=== PATIENT | female | born 1990 | race Caucasian/White ===

== ENCOUNTER 2020-01-28 16:02 | Emergency (ER) | payer OTHER, SELFPAY ==
[2020-01-28 19:17] VITALS: BP 132/83; PULSE 88; RESP 16; TEMP 36.9; O2SAT 100; BMI 43.5
[2020-01-28 20:07] VITALS: BP 132/86; PULSE 90; RESP 17; TEMP 36.8; O2SAT 98
--- NOTE | 2020-01-28 20:12 | ED_ITS ---
HPI - URI/Sore Throat General Chief Complaint: Skin/Abscess/Foreign Body Stated Complaint: ABSCESS Time Seen by Provider: 01/28/20 20:04 Source: patient Mode of arrival: ambulatory Limitations: no limitations History of Present Illness HPI Narrative: Sore throat R>L x several weeks. One temp 100.3 today. Went to urgent care and sent to the ED for further evaluation after COVID testing sent. 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 MD elicited complaint: sore throat Onset (ago): week(s) Consistency: constant Severity: moderate Able to tolerate fluids by mouth: Yes Exacerbating factors: nothing Relieving factors: nothing Associated symptoms: fever (one temp 100.3 today ) Treatments prior to arrival: none Related Data Home Medications Medication Instructions Recorded Confirmed acetaminophen 500 mg tablet 0 mg PO 01/28/20 cephalexin 250 mg capsule 250 mg PO QID 01/28/20 lorazepam 0.5 mg tablet 0.5 mg PO TID PRN 01/28/20 nitrofurantoin 1 cap PO BID 01/28/20 monohydrate/macrocrystals 100 mg capsule phenazopyridine 200 mg tablet 200 mg PO TID 01/28/20 Previous Rx's Medication Instructions Recorded azithromycin See Rx Instructions .ROUTE 01/28/20 .COMPLEX #6 tab clindamycin HCl 75 mg capsule 150 mg PO TID 10 Days #60 cap 01/28/20 ibuprofen 600 mg PO TID PRN #20 tab 01/28/20 prednisone 20 mg tablet 20 mg PO DAILY 9 Days #18 tab 01/28/20 Allergies Allergy/AdvReac Type Severity Reaction Status Date / Time amoxicillin Allergy Unknown rash Verified 10/02/19 00:00 No Known Allergies Allergy Unverified 12/11/19 17:46 [No Known Allergies*] Review of Systems Constitutional: Constitutional: Reports no additional constitutional complaints, Denies body ache(s), Denies chills, Reports fever(s) (one temp 100.3), Denies headache(s) and Denies weakness Eyes: Eyes: Reports no additional eye complaints and Denies change in vision ENT: Reports system reviewed and no additional complaints, except as documented, Denies otalgia, Denies headache(s), Denies nasal congestion, Denies nasal discharge, Denies neck pain and Reports sore throat Cardiovascular: Cardiovascular: Reports no additional cardiovascular complaints, Denies chest pain, Denies leg edema and Denies dyspnea Respiratory: Respiratory: Reports no additional respiratory complaints, Denies cough and Denies dyspnea Gastrointestinal: Gastrointestinal: Reports no additional gastrointestinal complaints, Denies abdominal pain, Denies diarrhea, Denies nausea and Denies vomiting Genitourinary: Genitourinary: Reports no additional female genitourinary complaints, Denies urinary incontinence, Denies urinary hesitancy and Denies urinary urgency Musculoskeletal: Musculoskeletal: Reports no additional musculoskeletal complaints, Denies back pain, Denies arthralgias, Denies joint swelling, Denies neck pain, Denies numbness and Denies tingling Integumentary/Breasts: Skin/Breast: Reports system reviewed and no additional complaints, except as docu and Denies rash Neurologic: Reports system reviewed and no additional complaints, except as documented, Denies Abnormal speech present, Denies confusion, Denies dizziness, Denies headache(s), Denies focal weakness, Denies numbness, Denies tingling and Denies weakness Psychiatric: Psychiatric: Denies confusion [facility] Past Medical History Attestation statement: The following information was validated with the patient. Source: nursing notes reviewed Social History Social History Alcohol intake: never Smoked in Last 30 Days: No Use of substances other than those prescribed or required for medical reasons: No Advance Directives: No Advance Directives Information Provided: No Physical Exam Vital Signs: Vital Signs: Vital Signs Temp Pulse Resp BP Pulse Ox 01/28/20 20:07 98.3 F 90 17 132/86 98 01/28/20 19:17 98.4 F 88 16 132/83 100 Body Mass Index 43.5 Const: General: No confusion Orientation/consciousness: No confusion Limitations: no limitations HENMT: Head: Yes normal to inspection Ears: hearing grossly normal bilaterally General nose exam: Normal external nose present Face and sinus: Yes normal facial exam Mouth: Normal oral and palatal mucosa present Throat: Yes uvula midline, No peritonsillar mass, No postnasal drainage, No uvula laterally displaced, No uvular edema, No cobblestoning and Yes other (bilateral tonsillar mild erythema, no swelling/[employer]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 ) Eyes: General: appearance normal, both eyes and all related structures Pupils: Equal, round and reactive pupils present Neck: Neck: Yes normal visual inspection Chest: Chest palpation & inspection: normal inspection of the chest Resp: Effort & Inspection: normal respiratory effort Auscultation: clear to auscultation bilaterally Cardio: Rate: regular rate Rhythm: regular rhythm Peripheral pulses: Peripheral pulses 2+ throughout GI: Inspection: Yes normal to inspection Palpation (GI): Soft to palpation and nontender Auscultation: normal bowel sounds Back/Spine/Pelvis: Thoracic/Lumbar Spine: thoracic and lumbar spine normal to inspection Skin: General skin exam: no rashes or lesions noted Neuro: General: No confusion Cranial nerves: Yes Equal, round and reactive pupils present Cognition (Neuro): normal cognition Speech: No Abnormal speech present Gait exam (Neuro): Normal gait present Motor exam (neuro): 5/5 motor strength present throughout Extrem: General: Yes normal to inspection Course Course Course Narrative: Sore throat x several weeks. Seen at urgent care and sent to the ED for r/o [employer] SUPERVISOR. Patient has no unilateral swelling. Her uvula is midline. She has mild bilateral tonsillar erythema. No exudate or swelling. Exam is not consistent with a peritonsillar abscess. Rapid strep was negative. Throat culture sent. Will treat with short course of antibiotics x 5 days. Reviewed worrisome signs/symptoms with patient and when to return to ED. Comfortable with discharge home. Discharge Plan Discharge Clinical Impression: Pharyngitis Qualifiers: Pharyngitis/tonsillitis etiology: unspecified etiology Qualified Code(s): J02.9 - Acute pharyngitis, unspecified Patient Disposition: Home, Self-Care Instructions: Pharyngitis (ED) Additional Instructions: Salt water gargles Cepacol lozenges Prescriptions: New azithromycin 500 mg tablet See Rx Instructions .ROUTE .COMPLEX Qty: 6 RF: 0 ibuprofen 600 mg tablet 600 mg PO TID PRN (Reason: fever or pain) Qty: 20 RF: 0 No Action nitrofurantoin monohyd/m-cryst 100 mg capsule 1 cap PO BID RF: 0 phenazopyridine 200 mg tablet 200 mg PO TID RF: 0 cephalexin 250 mg capsule 250 mg PO QID RF: 0 acetaminophen 500 mg tablet 0 mg PO RF: 0 lorazepam 0.5 mg tablet 0.5 mg PO TID PRN (Reason: anxiety) RF: 0 clindamycin HCl 75 mg capsule 150 mg PO TID 10 Days Qty: 60 RF: 0 prednisone 20 mg tablet 20 mg PO DAILY 9 Days Qty: 18 RF: 0 Referrals: Mariusz Albarado MD [Primary Care Provider] - 2 days (if no improvement ) Stand Alone Forms: Work/School Release Interventions: ED Discharge Assessment Last Done: 01/28/20 20:59 Discharge Date/Time: 01/28/20 21:00
== END 2020-01-28 21:00 | disposition home or self-care (01) ==
PROVIDERS: Emergency Provider Internal Medicine; PCP Internal Medicine
DX: J02.9 Acute pharyngitis, unspecified (principal); R50.9 Fever, unspecified; Z79.899 Other long term (current) drug therapy; Z20.828 Contact with and (suspected) exposure to other viral communicable diseases
CPT/HCPCS: 87071; 87880; 99283; 99284

== ENCOUNTER 2020-01-28 17:15 | Outpatient (REF) | payer OTHER, SELFPAY | END 2020-01-28 17:16 | disposition home or self-care (01) | LOC: HO.LAB 17:15 | PROVIDERS: Visit Provider Nurse Practitioner Family | DX: Z20.828 Contact with and (suspected) exposure to other viral communicable diseases (principal) | CPT/HCPCS: 87071; 87880; 99283; 99284; U0003 ==

== ENCOUNTER 2020-08-16 19:37 | Emergency (ER) | payer OTHER, SELFPAY ==
--- NOTE | ~2020-08-16 | XR_ITS ---
EXAMINATION: XR WRIST, LEFT CLINICAL INFORMATION: Fall with painful left wrist COMPARISON: None TECHNIQUE: PA, lateral, and oblique views of the left wrist. FINDINGS: The bones and soft tissues are normal. Incidental note made of a small cyst in the capitellum. No fracture. Alignment is anatomic with normal joint spaces. No erosions or abnormal soft tissue calcifications. XR/XR wrist LT 2V IMPRESSION: No evidence of a traumatic left wrist injury
[2020-08-16 19:52] VITALS: BP 136/83; PULSE 84; RESP 18; TEMP 37.7; O2SAT 97; BMI 40.3
--- NOTE | 2020-08-16 20:15 | PC.NURSE ---
ICE PACK APPLIED TO LEFT WRIST. NEUROVASC INTACT.
--- NOTE | 2020-08-16 20:48 | ED_ITS ---
HPI - Extremity Injury (Upper) General Chief Complaint: Extremity Injury, Lower Stated Complaint: wrist pain Source: patient Mode of arrival: ambulatory Limitations: no limitations History of Present Illness HPI narrative: 30-year-old female presents with left wrist pain after tripping over her child. She landed on outstretched arm. She does not describe any other symptoms, did not hit her head or lose consciousness. MD complaint: injury to: left and forearm Onset (ago): hour(s) (Within the hour of arrival) Other injuries: none Handedness: right Place: home Severity: moderate Severity scale (1-10): 5 Relieving factors: cold therapy and immobilization Exacerbating factors: movement of extremity Context: fall Associated symptoms: denies other symptoms Treatments prior to arrival: cold therapy Related Data Home Medications Medication Instructions Recorded Confirmed acetaminophen 500 mg tablet 0 mg PO 01/28/20 cephalexin 250 mg capsule 250 mg PO QID 01/28/20 lorazepam 0.5 mg tablet 0.5 mg PO TID PRN 01/28/20 nitrofurantoin 1 cap PO BID 01/28/20 monohydrate/macrocrystals 100 mg capsule phenazopyridine 200 mg tablet 200 mg PO TID 01/28/20 Previous Rx's Medication Instructions Recorded azithromycin See Rx Instructions .ROUTE 01/28/20 .COMPLEX #6 tab ibuprofen 600 mg PO TID PRN #20 tab 01/28/20 cyclobenzaprine 10 mg PO TID PRN #7 tab 08/16/20 Allergies Allergy/AdvReac Type Severity Reaction Status Date / Time amoxicillin Allergy Unknown rash Verified 10/02/19 00:00 No Known Allergies Allergy Unverified 12/11/19 17:46 [No Known Allergies*] Review of Systems Review of Systems: Constitutional: No Fever, No Chills ENT/Mouth: No Ear Pain, No Hoarseness, No sore throat Eyes: No Eye Pain, No Swelling, No Redness, No Foreign Body Cardiovascular: No Chest Pain, No SOB Respiratory: No Cough, No Dyspnea Gastrointestinal: No Nausea, No Vomiting, No Diarrhea, No abdominal Pain Genitourinary: No Dysuria, No Hematuria Musculoskeletal: positive left forearm pain, No Myalgias, No Joint Swelling Skin: No Skin lacerations, No rash Neuro: No Weakness, No Numbness, No Paresthesias, No Loss of Consciousness, No Dizziness, No Headache Psych: No Anxiety/Panic, No Depression Heme/Lymph: no easy bruising, no Lymphadenopathy Endocrine: No Polyuria, No Polydipsia Yes all other systems are reviewed and are negative [facility] Past Medical History Attestation statement: The following information was validated with the patient. Source: old records reviewed Social History Social History Alcohol intake: never Advance Directives: No Patient : No Physical Exam Vital Signs: Vital Signs: Last Vital Signs Temp 99.8 F 08/16/20 19:52 Pulse 84 08/16/20 19:52 Resp 18 08/16/20 19:52 BP 136/83 08/16/20 19:52 Pulse Ox 97 08/16/20 19:52 Body Mass Index 40.3 Appearance: Alert. Oriented X3. No acute distress. Eyes: Pupils equal, round and reactive to light. ENT: Pharynx normal. Neck: Normal inspection. Neck supple. CVS: Normal heart rate and rhythm. Pulses normal. Respiratory: No respiratory distress. Breath sounds normal. Abdomen: Soft and nontender. Skin: Skin warm and dry. Normal skin color. Normal skin turgor. Extremities: Tenderness to palpation to the left radial process, has full range of motion to both upper extremities, strength 5/5 to all digits, no indication of tendon injury. No visible abnormality or deformity, no swelling or ecchymosis noted. Upper extremity Pulses are equal and with brisk capillary refill. Neuro: No motor deficit. No sensory deficit. Course Course Course Narrative: 30-year-old female presents with left wrist pain after tripping over her child and landing on outstretched arm. Will order x-rays. X-rays negative for acute findings. Patient does have some tenderness to the left radial process, will treat for grade 1 sprain. Will give velcro wrist splint and have patient follow RICE treatment. Will suggest Motrin and Tylenol for pain management. Patient verbalizes understanding of and agrees plan of care discharge home. MDM - Extremity Injury (Upper) Differential Diagnosis Differential diagnosis: Likely sprain and strain of wrist Medical Records Attestation: I reviewed the patient's medical records. Lab Data Attestation: I reviewed the patient's lab results. Imaging Data Left wrist x-ray: Attestation: I personally reviewed and interpreted this imaging study as follows: Radiologist's impression: EXAMINATION: XR WRIST, LEFT CLINICAL INFORMATION: Fall with painful left wrist COMPARISON: None TECHNIQUE: PA, lateral, and oblique views of the left wrist. FINDINGS: The bones and soft tissues are normal. Incidental note made of a small cyst in the capitellum. No fracture. Alignment is anatomic with normal joint spaces. No erosions or abnormal soft tissue calcifications. XR/XR wrist LT 2V IMPRESSION: No evidence of a traumatic left wrist injury Discharge Plan Discharge Clinical Impression: Left wrist sprain Patient Disposition: Home, Self-Care Instructions: Wrist Sprain (ED) Additional Instructions: You were evaluated for injuries sustained from a fall on outstretched arm. Your x-rays for the left wrist and forearm are negative for fracture. Your symptoms are consistent with a grade 1 mild sprain. Please use a Velcro wrist splint as needed for pain management. He has Tylenol and Motrin to help with pain. Use ice to help decrease swelling. Thank you for choosing this emergency department for evaluation. Please follow-up with primary care physician as needed. Return to the emergency department for any new, concerning, or worsening symptoms. Prescriptions: New cyclobenzaprine 10 mg tablet 10 mg PO TID PRN (Reason: muscle spasm) Qty: 7 RF: 0 No Action azithromycin 500 mg tablet See Rx Instructions .ROUTE .COMPLEX Qty: 6 RF: 0 ibuprofen 600 mg tablet 600 mg PO TID PRN (Reason: fever or pain) Qty: 20 RF: 0 nitrofurantoin monohyd/m-cryst 100 mg capsule 1 cap PO BID RF: 0 phenazopyridine 200 mg tablet 200 mg PO TID RF: 0 cephalexin 250 mg capsule 250 mg PO QID RF: 0 acetaminophen 500 mg tablet 0 mg PO RF: 0 lorazepam 0.5 mg tablet 0.5 mg PO TID PRN (Reason: anxiety) RF: 0 Interventions: ED Discharge Assessment Last Done: 08/16/20 21:49 Discharge Date/Time: 08/16/20 21:51
== END 2020-08-16 21:51 | disposition home or self-care (01) ==
PROVIDERS: Emergency Provider Emergency Medicine; PCP Internal Medicine
DX: S63.502A Unspecified sprain of left wrist, initial encounter (principal); W01.0XXA Fall on same level from slipping, tripping and stumbling without subsequent striking against object, initial encounter; Y93.9 Activity, unspecified; Y92.019 Unspecified place in single-family (private) house as the place of occurrence of the external cause; Y99.9 Unspecified external cause status; R93.6 Abnormal findings on diagnostic imaging of limbs; M67.432 Ganglion, left wrist
CPT/HCPCS: 73100; 99283; 99284

== ENCOUNTER 2020-11-01 14:37 | Emergency (ER) | payer OTHER, SELFPAY ==
--- NOTE | ~2020-11-01 | US_ITS ---
EXAMINATION: US PELVIS CLINICAL INFORMATION: Right pelvic pain with question of torsion COMPARISON: CT scan abdomen pelvis performed earlier in the day TECHNIQUE: Ultrasound of the pelvis is performed using both transabdominal and transvaginal transducers along with Doppler. Transvaginal imaging is performed due to inadequate visualization transabdominally. FINDINGS: Uterus: The uterus is anteverted and measures 10.1 x 4.3 x 5.8 cm. The double wall endometrial thickness is 10 mm. The uterus is smooth in contour and has normal myometrial echogenicity. No visible fibroid. Adnexa: Both ovaries are visualized. There is normal color flow to the adnexa. There is no evidence to suggest ovarian torsion. There is no pelvic ascites or fluid collection. Right ovary measures 3.0 x 1.9 x 1.7 cm. 5.1 Left ovary measures 3.3 x 2.1 x 2.1 cm. 7.6 US/US pelvic complete IMPRESSION: Normal-appearing uterus and ovaries with no evidence to suggest ovarian torsion
--- NOTE | ~2020-11-01 | CT_ITS ---
EXAMINATION: CT ABDOMEN AND PELVIS WITH CONTRAST CLINICAL INFORMATION: Right lower quadrant abdominal pain COMPARISON: None TECHNIQUE: Multidetector volumetric images were obtained from the superior aspect of the liver through the pubic symphysis following administration 85 mL of Omnipaque 350 intravenous contrast. Sagittal and coronal reformatted images were obtained on the technologist's workstation. Oral contrast: No This CT examination was performed using dose optimization techniques as appropriate, variously including the following: *Automated exposure control *Adjustment of mA and/or kV according to patient size (this includes techniques or standardized protocols for targeted exams where dose is matched to indication/reason for exam; i.e. extremities or head) *Use of iterative reconstruction technique DLP: 1040 mGy-cm FINDINGS: LUNG BASES: The visualized lung bases are unremarkable. LIVER, GALLBLADDER, AND BILIARY TREE: The liver is normal in size, shape, and attenuation. No focal hepatic lesion or biliary ductal dilatation is present. The gallbladder is unremarkable with no evidence of radiopaque gallstones, gallbladder wall thickening, or obvious pericholecystic inflammatory changes. PANCREAS: Unremarkable. SPLEEN: Unremarkable. ADRENAL GLANDS: Unremarkable. KIDNEYS AND URETERS: The kidneys are normal in size, shape, and attenuation. No hydronephrosis, hydroureter, or calculi seen. No perinephric stranding. BLADDER: Unremarkable. GASTROINTESTINAL TRACT: The small and large bowel are unremarkable. The appendix is unremarkable. ABDOMINAL WALL: No significant hernia is appreciated. LYMPH NODES: Normal. VASCULAR: Unremarkable. PELVIC VISCERA: Unremarkable. OSSEOUS STRUCTURES: Unremarkable. CT/CT abdomen pelvis w con IMPRESSION: No acute abnormality CT scan abdomen pelvis.
[2020-11-01 15:25] VITALS: BP 130/80; PULSE 81; RESP 18; TEMP 36.5; O2SAT 99; BMI 44.6
--- NOTE | 2020-11-01 15:27 | ED.GENADULT ---
HPI - General Adult General Chief complaint: General Medical Stated complaint: rt hip pain/ pelvic pain Time Seen by Provider: 11/01/20 15:26 Related Data Home Medications Medication Instructions Recorded Confirmed acetaminophen 500 mg tablet 0 mg PO 01/28/20 cephalexin 250 mg capsule 250 mg PO QID 01/28/20 lorazepam 0.5 mg tablet 0.5 mg PO TID PRN 01/28/20 nitrofurantoin 1 cap PO BID 01/28/20 monohydrate/macrocrystals 100 mg capsule phenazopyridine 200 mg tablet 200 mg PO TID 01/28/20 Previous Rx's Medication Instructions Recorded ibuprofen 600 mg tablet 600 mg PO TID PRN #20 tab 01/28/20 cyclobenzaprine 10 mg tablet 10 mg PO TID PRN #7 tab 08/16/20 azithromycin 500 mg tablet See Rx Instructions .ROUTE 09/28/20 .COMPLEX #6 tab [id number] 3.5 4 drp OTIC (EAR) RIGHT QID 10 Days 09/28/20 mg/mL-10,000 unit/mL-1 % ear #10 ml solution Allergies Allergy/AdvReac Type Severity Reaction Status Date / Time amoxicillin Allergy Intermediate rash Verified 11/01/20 15:25 [facility] Past Medical History Medical History No pertinent past medical history Social History Social History Alcohol intake: never Patient Tobacco Use Status: Never used Tobacco Use of substances other than those prescribed or required for medical reasons: No Advance Directives: No Advance Directives Information Provided: No Patient : No Physical Exam Vital Signs: Vital Signs: Last Vital Signs Temp 98.7 F 11/01/20 21:08 Pulse 68 11/01/20 23:39 Resp 18 11/01/20 23:39 BP 117/65 11/01/20 23:39 Pulse Ox 98 11/01/20 23:39 Body Mass Index 44.6 Course Course Course Narrative: Patient presents to the ED for right pelvic pain for the past 4 days. Patient denies any trauma. Labs and UA ordered. Rapid medical screening done. Vital signs stable. Medical Decision Making Lab Data Result diagrams: 11/01/20 19:01 11/01/20 19:01 Labs: Lab Results 11/01/20 11/01/20 11/01/20 Range/Units 19:01 19:01 19:06 WBC 8.9 (4.8-10.8) X10*3/uL RBC 4.81 (4.20-5.50) X10*6/uL Hgb 13.9 (12.0-16.0) g/dl Hct 41.9 (37-47) % MCV 87.1 (80-98) fL MCH 28.9 (27.0-33.0) pg MCHC 33.2 (31.0-35.0) g/dl RDW 13.2 (11.0-16.0) % Plt Count 268 (160-400) X10*3/uL MPV 10.3 (9.4-12.3) fL Immature Gran % (Auto) 0.1 (0.0-0.4) % Neut % (Auto) 74.1 H (45-73) % Lymph % (Auto) 21.0 (20-40) % [place] % (Auto) 4.3 (2-11) % Eos % (Auto) 0.3 (0-4) % Baso % (Auto) 0.2 (0-2) % Lymph # (Auto) 1.9 (1.2-4.9) X10*3/uL [place] # (Auto) 0.4 (0.1-1.2) X10*3/uL Eos # (Auto) 0.0 (0.0-0.4) X10*3/uL Baso # (Auto) 0.0 (0.0-0.2) X10*3/uL Abs Immat Gran (auto) 0.01 (0.00-0.03) X10*3/uL Absolute Neuts (auto) 6.6 (2.0-8.3) X10*3/uL Absolute Nucleated RBC 0.000 (0.0-0.012) X10*3/uL Nucleated RBC % (auto) 0.0 (0.0-0.2) /100WBC PT (9.9-13.0) SEC INR (0.9-1.1) APTT (24.1-38.0) SEC Sodium 140 (135-145) mmol/L Potassium 4.5 (3.3-5.1) mmol/L Chloride 106 (96-108) mmol/L Carbon Dioxide 26 (22-29) mmol/L Anion Gap 13 (12-20) BUN 17 H (9-16) mg/dL Creatinine 0.85 (0.5-1.4) mg/dL Estim Creat Clear Calc 124.4 Estimated GFR > 60 Random Glucose 92 (60-115) mg/dL Calcium 9.3 (8.4-10.2) mg/dL Total Bilirubin 0.4 (0.0-1.0) mg/dL AST 19 (5-31) U/L ALT 23 (0-31) U/L Alkaline Phosphatase 74 (39-117) U/L Total Protein 8.1 H (6.5-8.0) g/dL Albumin 4.6 (3.5-5.0) g/dL Urine Color YELLOW Urine Appearance CLEAR Urine pH 6.0 (5.0-8.0) Ur Specific Sabine 1.025 (1.005-1.025) Urine Protein NEG (NEG-TRACE) MG/DL Urine Glucose (UA) NEG (NEG) MG/DL Urine Ketones NEG (NEG) MG/DL Urine Blood NEG (NEG) Urine Nitrite NEG (NEG) Ur Leukocyte Esterase NEG (NEG) Urine Test (NEGATIVE) 11/01/20 11/01/20 Range/Units 19:06 23:08 WBC (4.8-10.8) X10*3/uL RBC (4.20-5.50) X10*6/uL Hgb (12.0-16.0) g/dl Hct (37-47) % MCV (80-98) fL MCH (27.0-33.0) pg MCHC (31.0-35.0) g/dl RDW (11.0-16.0) % Plt Count (160-400) X10*3/uL MPV (9.4-12.3) fL Immature Gran % (Auto) (0.0-0.4) % Neut % (Auto) (45-73) % Lymph % (Auto) (20-40) % Jess[place] % (Auto) (2-11) % Eos % (Auto) (0-4) % Baso % (Auto) (0-2) % Lymph # (Auto) (1.2-4.9) X10*3/uL [place] # (Auto) (0.1-1.2) X10*3/uL Eos # (Auto) (0.0-0.4) X10*3/uL Baso # (Auto) (0.0-0.2) X10*3/uL Abs Immat Gran (auto) (0.00-0.03) X10*3/uL Absolute Neuts (auto) (2.0-8.3) X10*3/uL Absolute Nucleated RBC (0.0-0.012) X10*3/uL Nucleated RBC % (auto) (0.0-0.2) /100WBC PT 12.1 (9.9-13.0) SEC INR 1.1 (0.9-1.1) APTT 35.8 (24.1-38.0) SEC Sodium (135-145) mmol/L Potassium (3.3-5.1) mmol/L Chloride (96-108) mmol/L Carbon Dioxide (22-29) mmol/L Anion Gap (12-20) BUN (9-16) mg/dL Creatinine (0.5-1.4) mg/dL Estim Creat Clear Calc Estimated GFR Random Glucose (60-115) mg/dL Calcium (8.4-10.2) mg/dL Total Bilirubin (0.0-1.0) mg/dL AST (5-31) U/L ALT (0-31) U/L Alkaline Phosphatase (39-117) U/L Total Protein (6.5-8.0) g/dL Albumin (3.5-5.0) g/dL Urine Color Urine Appearance Urine pH (5.0-8.0) Ur Specific Sabine (1.005-1.025) Urine Protein (NEG-TRACE) MG/DL Urine Glucose (UA) (NEG) MG/DL Urine Ketones (NEG) MG/DL Urine Blood (NEG) Urine Nitrite (NEG) Ur Leukocyte Esterase (NEG) Urine Test NEGATIVE (NEGATIVE) Discharge Plan Discharge Clinical Impression: Abdominal pain Patient Disposition: Home, Self-Care Instructions: Abdominal Pain (ED) Additional Instructions: Your lab work, urine sample, CT scan and abdominal ultrasound are all unremarkable It is still important to follow-up with your doctor for additional testing as needed Prescriptions: No Action cyclobenzaprine 10 mg tablet 10 mg PO TID PRN (Reason: muscle spasm) Qty: 7 RF: 0 ibuprofen 600 mg tablet 600 mg PO TID PRN (Reason: fever or pain) Qty: 20 RF: 0 nitrofurantoin monohyd/m-cryst 100 mg capsule 1 cap PO BID RF: 0 phenazopyridine 200 mg tablet 200 mg PO TID RF: 0 cephalexin 250 mg capsule 250 mg PO QID RF: 0 acetaminophen 500 mg tablet 0 mg PO RF: 0 lorazepam 0.5 mg tablet 0.5 mg PO TID PRN (Reason: anxiety) RF: 0 azithromycin 500 mg tablet See Rx Instructions .ROUTE .COMPLEX Qty: 6 RF: 0 [id number]-[id number]-AH 3.5-10,000-1 mg/mL-unit/mL-% solution 4 drp otic (ear) right QID 10 Days Qty: 10 RF: 0 Referrals: Mariusz Albarado MD [Primary Care Provider] - 2 days Interventions: ED Discharge Assessment Last Done: 11/01/20 23:46 Discharge Date/Time: 11/01/20 23:47
[2020-11-01 19:06] LABS: MANUAL DIFF FLAG NO
[2020-11-01 19:12] LABS: Basophils Percent Auto 0.2 % (0-2); Eosinophils Percent Auto 0.3 % (0-4); Hematocrit 41.9 % (37-47); Hemoglobin 13.9 g/dl (12.0-16.0); Imm Gran Abs Auto 0.01 X10*3/uL (0.00-0.03); Imm Gran Pct Auto 0.1 % (0.0-0.4); Lymphocytes Absolute Auto 1.9 X10*3/uL (1.2-4.9); Mean Corpuscular HGB Conc 33.2 g/dl (31.0-35.0); Mean Corpuscular Hemoglobin 28.9 pg (27.0-33.0); Mean Corpuscular Volume 87.1 fL (80-98); Mean Platelet Volume 10.3 fL (9.4-12.3); Monocytes Absolute Auto 0.4 X10*3/uL (0.1-1.2); Monocytes Percent Auto 4.3 % (2-11); Neutrophils Absolute Auto 6.6 X10*3/uL (2.0-8.3); Neutrophils Percent Auto 74.1 % (45-73); Platelet Count 268 X10*3/uL (160-400); Red Blood Count 4.81 X10*6/uL (4.20-5.50); Red Cell Distribution Width 13.2 % (11.0-16.0); White Blood Count 8.9 X10*3/uL (4.8-10.8)
[2020-11-01 19:28] LABS: Glucose Urine UA NEG (NEG); Leukocyte Esterase Urine NEG (NEG); Nitrite Urine NEG (NEG); Specific Gravity - Urine 1.025 (1.005-1.025); Urine Blood NEG (NEG); Urine Ketones NEG (NEG); Urine Protein NEG (NEG-TRACE)
[2020-11-01 19:30] LABS: Appearance Urine CLEAR; Color Urine YELLOW; UPreg QC Valid YES; Urine Pregnancy NEGATIVE (NEGATIVE)
[2020-11-01 19:34] LABS: Alanine Aminotransferase 23 U/L (0-31); Albumin Level 4.6 g/dL (3.5-5.0); Alkaline Phosphatase 74 U/L (39-117); Anion Gap 13 (12-20); Aspartate Amino Transferase 19 U/L (5-31); Bilirubin Total 0.4 mg/dL (0.0-1.0); Blood Urea Nitrogen 17 mg/dL (9-16); Calcium 9.3 mg/dL (8.4-10.2); Carbon Dioxide 26 mmol/L (22-29); Chloride 106 mmol/L (96-108); Creatinine Clr Calc Pharmacy 124.4; Estimated Glomerular Filt Rate > 60; Glucose Random 92 mg/dL (60-115); Potassium 4.5 mmol/L (3.3-5.1); Sodium 140 mmol/L (135-145); Total Protein 8.1 g/dL (6.5-8.0)
[2020-11-01 21:08] VITALS: BP 109/65; PULSE 73; RESP 18; TEMP 37.1; O2SAT 99
--- NOTE | 2020-11-01 21:11 | ED_ITS ---
HPI - General Adult General Chief complaint: General Medical Stated complaint: rt hip pain/ pelvic pain Time Seen by Provider: 11/01/20 15:26 Source: patient Mode of arrival: ambulatory Limitations: no limitations History of Present Illness HPI narrative: 30-year-old female previously healthy here with complaints of right-sided abdominal pain for the last 4 days with associated nausea and diarrhea. Patient tells me that she has had 3-4 episodes of diarrhea a day. Nonbloody. No vomiting. No fevers or chills. No urinary symptoms. No vaginal discharge. No new sexual partners. Last menstrual cycle 2 weeks ago. One male partner. Uses condoms. Related Data Home Medications Medication Instructions Recorded Confirmed acetaminophen 500 mg tablet 0 mg PO 01/28/20 cephalexin 250 mg capsule 250 mg PO QID 01/28/20 lorazepam 0.5 mg tablet 0.5 mg PO TID PRN 01/28/20 nitrofurantoin 1 cap PO BID 01/28/20 monohydrate/macrocrystals 100 mg capsule phenazopyridine 200 mg tablet 200 mg PO TID 01/28/20 Previous Rx's Medication Instructions Recorded ibuprofen 600 mg tablet 600 mg PO TID PRN #20 tab 01/28/20 cyclobenzaprine 10 mg tablet 10 mg PO TID PRN #7 tab 08/16/20 azithromycin 500 mg tablet See Rx Instructions .ROUTE 09/28/20 .COMPLEX #6 tab zzybwoav-wkbkwxocx-imaeieusl 3.5 4 drp OTIC (EAR) RIGHT QID 10 Days 09/28/20 mg/mL-10,000 unit/mL-1 % ear #10 ml solution Allergies Allergy/AdvReac Type Severity Reaction Status Date / Time amoxicillin Allergy Intermediate rash Verified 11/01/20 15:25 Review of Systems Review of Systems: Yes all other systems are reviewed and are negative Constitutional: Constitutional: Reports no additional constitutional complaints, Denies body ache(s), Denies chills, Denies fever(s), Denies headache(s) and Denies weakness Eyes: Eyes: Reports no additional eye complaints and Denies change in vision ENT: Reports system reviewed and no additional complaints, except as documented, Denies dizziness, Denies headache(s), Denies nasal congestion, Denies nasal discharge and Denies neck pain Cardiovascular: Cardiovascular: Reports no additional cardiovascular complaints, Denies chest pain, Denies leg edema and Denies dyspnea Respiratory: Respiratory: Reports no additional respiratory complaints, Denies cough and Denies dyspnea Gastrointestinal: Gastrointestinal: Reports no additional gastrointestinal complaints, Reports abdominal pain, Reports diarrhea, Reports nausea and Denies vomiting Genitourinary: Genitourinary: Reports no additional female genitourinary complaints and Denies urinary incontinence Musculoskeletal: Musculoskeletal: Reports no additional musculoskeletal complaints, Denies back pain, Denies arthralgias, Denies joint swelling, Denies neck pain, Denies numbness and Denies tingling Integumentary/Breasts: Skin/Breast: Reports system reviewed and no additional complaints, except as docu and Denies rash Neurologic: Reports system reviewed and no additional complaints, except as documented, Denies Abnormal speech present, Denies dizziness, Denies headache(s), Denies numbness, Denies tingling and Denies weakness PMFSH Past Medical History Attestation statement: The following information was validated with the patient. Source: old records reviewed and nursing notes reviewed Medical History No pertinent past medical history Social History Social History Alcohol intake: never Patient Tobacco Use Status: Never used Tobacco Use of substances other than those prescribed or required for medical reasons: No Advance Directives: No Advance Directives Information Provided: No Patient : No Physical Exam Vital Signs: Vital Signs: Last Vital Signs Temp 98.7 F 11/01/20 21:08 Pulse 68 11/01/20 23:39 Resp 18 11/01/20 23:39 BP 117/65 11/01/20 23:39 Pulse Ox 98 11/01/20 23:39 Body Mass Index 44.6 Const: General: cooperative, healthy appearing, comfortable and no acute distress Orientation/consciousness: patient oriented x3 Limitations: no limitations HENMT: Head: Yes normal to inspection Ears: hearing grossly normal bilaterally General nose exam: Normal external nose present Face and sinus: Yes normal facial exam Mouth: Normal oral and palatal mucosa present Throat: Yes posterior oropharynx normal Eyes: General: appearance normal, both eyes and all related structures Pupils: Equal, round and reactive pupils present Neck: Neck: Yes normal visual inspection Chest: Chest palpation & inspection: normal inspection of the chest Resp: Effort & Inspection: normal respiratory effort Auscultation: clear to auscultation bilaterally Cardio: Rate: regular rate Rhythm: regular rhythm Peripheral pulses: Peripheral pulses 2+ throughout GI: Inspection: Yes normal to inspection Palpation (GI): Soft to palpation and Tenderness to palpation present (GI) (Diffusely tender more focal right. No guarding or rebound) Auscultation: normal bowel sounds Back/Spine/Pelvis: Thoracic/Lumbar Spine: thoracic and lumbar spine normal to inspection Skin: General skin exam: no rashes or lesions noted Neuro: General: patient oriented x3, no focal motor deficits and normal sensation to monofilament Cranial nerves: Yes Equal, round and reactive pupils present Cognition (Neuro): normal cognition Speech: No Abnormal speech present Gait exam (Neuro): Normal gait present Motor exam (neuro): 5/5 motor strength present throughout Extrem: General: Yes normal to inspection Course Course Course Narrative: 30-year-old female here with complaints of abdominal pain more focal in the right side for the last 4 days associated diarrhea and nausea. On exam the patient has tenderness diffusely but it is more focal in the right mid and right lower quadrant. Less likely acute appendicitis with a normal white blood cell count with symptoms greater than 4 days. Consider viral gastroenteritis. Consider ovarian cyst. Will check UA, additional labs, CT A/P. 2300-CT shows no acute finding. Will check pelvic ultrasound 2330-ultrasound unremarkable. Reviewed findings with the patient. Again repeat abdominal exam is benign there is mild diffuse tenderness. Question viral gastroenteritis. Recommended following up with primary care doctor for persistent symptoms. Reviewed worrisome signs and symptoms when to return to the emergency department. Comfortable discharge home. Medical Decision Making MDM Narrative Medical decision making narrative: Appendicitis, ovarian cyst, UTI, viral gastroenteritis Medical Records Medical records reviewed: Yes I reviewed the patient's medical records. Lab Data Lab results reviewed: Yes I reviewed the patient's lab results. Result diagrams: 11/01/20 19:11/01/20 19: Labs: Lab Results 11/01/20 11/01/20 11/01/20 Range/Units 19:01 19: 19:06 WBC 8.9 (4.8-10.8) X10*3/uL RBC 4.81 (4.20-5.50) X10*6/uL Hgb 13.9 (12.0-16.0) g/dl Hct 41.9 (37-47) % MCV 87.1 (80-98) fL MCH 28.9 (27.0-33.0) pg MCHC 33.2 (31.0-35.0) g/dl RDW 13.2 (11.0-16.0) % Plt Count 268 (160-400) X10*3/uL MPV 10.3 (9.4-12.3) fL Immature Gran % (Auto) 0.1 (0.0-0.4) % Neut % (Auto) 74.1 H (45-73) % Lymph % (Auto) 21.0 (20-40) % [place] % (Auto) 4.3 (2-11) % Eos % (Auto) 0.3 (0-4) % Baso % (Auto) 0.2 (0-2) % Lymph # (Auto) 1.9 (1.2-4.9) X10*3/uL [place] # (Auto) 0.4 (0.1-1.2) X10*3/uL Eos # (Auto) 0.0 (0.0-0.4) X10*3/uL Baso # (Auto) 0.0 (0.0-0.2) X10*3/uL Abs Immat Gran (auto) 0.01 (0.00-0.03) X10*3/uL Absolute Neuts (auto) 6.6 (2.0-8.3) X10*3/uL Absolute Nucleated RBC 0.000 (0.0-0.012) X10*3/uL Nucleated RBC % (auto) 0.0 (0.0-0.2) /100WBC PT (9.9-13.0) SEC INR (0.9-1.1) APTT (24.1-38.0) SEC Sodium 140 (135-145) mmol/L Potassium 4.5 (3.3-5.1) mmol/L Chloride 106 (96-108) mmol/L Carbon Dioxide 26 (22-29) mmol/L Anion Gap 13 (12-20) BUN 17 H (9-16) mg/dL Creatinine 0.85 (0.5-1.4) mg/dL Estim Creat Clear Calc 124.4 Estimated GFR > 60 Random Glucose 92 (60-115) mg/dL Calcium 9.3 (8.4-10.2) mg/dL Total Bilirubin 0.4 (0.0-1.0) mg/dL AST 19 (5-31) U/L ALT 23 (0-31) U/L Alkaline Phosphatase 74 (39-117) U/L Total Protein 8.1 H (6.5-8.0) g/dL Albumin 4.6 (3.5-5.0) g/dL Urine Color YELLOW Urine Appearance CLEAR Urine pH 6.0 (5.0-8.0) Ur Specific [place] 1.025 (1.005-1.025) Urine Protein NEG (NEG-TRACE) MG/DL Urine Glucose (UA) NEG (NEG) MG/DL Urine Ketones NEG (NEG) MG/DL Urine Blood NEG (NEG) Urine Nitrite NEG (NEG) Ur Leukocyte Esterase NEG (NEG) Urine Test (NEGATIVE) 11/01/20 11/01/20 Range/Units 19:06 23:08 WBC (4.8-10.8) X10*3/uL RBC (4.20-5.50) X10*6/uL Hgb (12.0-16.0) g/dl Hct (37-47) % MCV (80-98) fL MCH (27.0-33.0) pg MCHC (31.0-35.0) g/dl RDW (11.0-16.0) % Plt Count (160-400) X10*3/uL MPV (9.4-12.3) fL Immature Gran % (Auto) (0.0-0.4) % Neut % (Auto) (45-73) % Lymph % (Auto) (20-40) % [place] % (Auto) (2-11) % Eos % (Auto) (0-4) % Baso % (Auto) (0-2) % Lymph # (Auto) (1.2-4.9) X10*3/uL [place] # (Auto) (0.1-1.2) X10*3/uL Eos # (Auto) (0.0-0.4) X10*3/uL Baso # (Auto) (0.0-0.2) X10*3/uL Abs Immat Gran (auto) (0.00-0.03) X10*3/uL Absolute Neuts (auto) (2.0-8.3) X10*3/uL Absolute Nucleated RBC (0.0-0.012) X10*3/uL Nucleated RBC % (auto) (0.0-0.2) /100WBC PT 12.1 (9.9-13.0) SEC INR 1.1 (0.9-1.1) APTT 35.8 (24.1-38.0) SEC Sodium (135-145) mmol/L Potassium (3.3-5.1) mmol/L Chloride (96-108) mmol/L Carbon Dioxide (22-29) mmol/L Anion Gap (12-20) BUN (9-16) mg/dL Creatinine (0.5-1.4) mg/dL Estim Creat Clear Calc Estimated GFR Random Glucose (60-115) mg/dL Calcium (8.4-10.2) mg/dL Total Bilirubin (0.0-1.0) mg/dL AST (5-31) U/L ALT (0-31) U/L Alkaline Phosphatase (39-117) U/L Total Protein (6.5-8.0) g/dL Albumin (3.5-5.0) g/dL Urine Color Urine Appearance Urine pH (5.0-8.0) Ur Specific [place] (1.005-1.025) Urine Protein (NEG-TRACE) MG/DL Urine Glucose (UA) (NEG) MG/DL Urine Ketones (NEG) MG/DL Urine Blood (NEG) Urine Nitrite (NEG) Ur Leukocyte Esterase (NEG) Urine Test NEGATIVE (NEGATIVE) Imaging Data CT scan - abdomen: Attestation: I personally reviewed and interpreted this imaging study as follows: Radiologist's impression: FINDINGS: LUNG BASES: The visualized lung bases are unremarkable.? LIVER, GALLBLADDER, AND BILIARY TREE: The liver is normal in size, shape, and attenuation. No focal hepatic lesion or biliary ductal dilatation is present. The gallbladder is unremarkable with no evidence of radiopaque gallstones, gallbladder wall thickening, or obvious pericholecystic inflammatory changes.? PANCREAS: Unremarkable.? SPLEEN: Unremarkable.? ADRENAL GLANDS: Unremarkable.? KIDNEYS AND URETERS: The kidneys are normal in size, shape, and attenuation. No hydronephrosis, hydroureter, or calculi seen. No perinephric stranding. ? BLADDER: Unremarkable.? GASTROINTESTINAL TRACT: The small and large bowel are unremarkable. The appendix is unremarkable.? ABDOMINAL WALL: No significant hernia is appreciated.? LYMPH NODES: Normal. VASCULAR: Unremarkable. PELVIC VISCERA: Unremarkable.? OSSEOUS STRUCTURES: Unremarkable.? CT/CT abdomen pelvis w con IMPRESSION: No acute abnormality CT scan abdomen pelvis.? US - abdomen: Attestation: I personally reviewed and interpreted this imaging study as follows: Radiologist's impression: FINDINGS: Uterus: The uterus is anteverted and measures 10.1 x 4.3 x 5.8 cm. The double wall endometrial thickness is 10 mm.? The uterus is smooth in contour and has normal myometrial echogenicity. ? No visible fibroid. Adnexa: Both ovaries are visualized. There is normal color flow to the adnexa. There is no evidence to suggest ovarian torsion.? There is no pelvic ascites or fluid collection. Right ovary measures 3.0 x 1.9 x 1.7 cm. 5.1 Left ovary measures 3.3 x 2.1 x 2.1 cm. 7.6 US/US pelvic complete IMPRESSION: Normal-appearing uterus and ovaries with no evidence to suggest ovarian torsion Discharge Plan Discharge Clinical Impression: Abdominal pain Patient Disposition: Home, Self-Care Instructions: Abdominal Pain (ED) Additional Instructions: Your lab work, urine sample, CT scan and abdominal ultrasound are all unremarkable It is still important to follow-up with your doctor for additional testing as n eeded Prescriptions: No Action cyclobenzaprine 10 mg tablet 10 mg PO TID PRN (Reason: muscle spasm) Qty: 7 RF: 0 ibuprofen 600 mg tablet 600 mg PO TID PRN (Reason: fever or pain) Qty: 20 RF: 0 nitrofurantoin monohyd/m-cryst 100 mg capsule 1 cap PO BID RF: 0 phenazopyridine 200 mg tablet 200 mg PO TID RF: 0 cephalexin 250 mg capsule 250 mg PO QID RF: 0 acetaminophen 500 mg tablet 0 mg PO RF: 0 lorazepam 0.5 mg tablet 0.5 mg PO TID PRN (Reason: anxiety) RF: 0 azithromycin 500 mg tablet See Rx Instructions .ROUTE .COMPLEX Qty: 6 RF: 0 aqwegyxv-xtyqbrxqy-HG 3.5-10,000-1 mg/mL-unit/mL-% solution 4 drp otic (ear) right QID 10 Days Qty: 10 RF: 0 Referrals: Mariusz Albarado MD [Primary Care Provider] - 2 days Interventions: ED Discharge Assessment Last Done: 11/01/20 23:46 Discharge Date/Time: 11/01/20 23:47
[2020-11-01] MEDS: Ketorolac Tromethamine 15 MG/ML VIAL 30 MG IVPUSH (21:50)
[2020-11-01] MEDS: iohexoL 350 MG/ML 100 ML INFUS..BTL IV (22:01)
[2020-11-01] MEDS: Morphine Sulfate 4 MG/ML CARTRIDGE IVPUSH (23:04)
[2020-11-01 23:20] LABS: INTERNATIONAL NORM RATIO 1.1 (0.9-1.1); Prothrombin Time 12.1 SEC (9.9-13.0)
[2020-11-01 23:22] LABS: Partial Thromboplastin Time 35.8 SEC (24.1-38.0)
[2020-11-01 23:39] VITALS: BP 117/65; PULSE 68; RESP 18; O2SAT 98
== END 2020-11-01 23:47 | disposition home or self-care (01) ==
PROVIDERS: Physician Assistant; Emergency Provider Emergency Medicine Emergency Medical Services; PCP Internal Medicine
DX: R10.2 Pelvic and perineal pain (principal); R19.7 Diarrhea, unspecified; Z79.899 Other long term (current) drug therapy
CPT/HCPCS: 36415; 74177; 76856; 80053; 81003; 81025; 85025; 85610; 85730; 96374; 96375; 99284; J1885; J2270; Q9967

== ENCOUNTER 2023-10-30 10:15 | Outpatient (AMB) | payer BC, SELFPAY ==
--- NOTE | 2023-10-30 10:26 | AM.OFFWIN_ITS ---
Intake Vital Signs 10/30/23 10:27 Height 5 ft 4 in Weight 292 lb BMI 50.1 BP 134/82 Blood Pressure Location Rt brachial Position Sitting Pulse 73 Pulse Source Pulse Oximeter Temp 97.9 F Temp Source Temporal Artery Scan Pulse Oximetry (%) 98 Oxygen Delivery Method Room Air Intake Visit Reasons: Chest tightness (3am today) 1wk Intake Note: Pt c/o chest tightness. Started this morning around 3am Patient Tobacco Use Status: Never used Tobacco Allergies amoxicillin Allergy (Intermediate, Verified 10/30/23 11:27) rash Medication List - Last Reconciled 10/30/23 by Kali Avitia MD acetaminophen 975 mg PO Q6H PRN oxycodone 5 mg PO Q3H PRN polyethylene glycol 3350 (Gavilax) 17 grams PO DAILY sennosides-docusate sodium 8.6-50 mg (Senexon-S) 1 tab-cap PO QPM Do you need a note to return to daycare/school/sports/work: No HPI Chest tightness (3am today) 1wk HPI Details 33-year-old female [facility].. Patient delivered a baby by 1 week ago. She woke up this morning with heaviness in the chest. No associated shortness of breath. No bleeding per vagina. No fevers or chills. No nausea or vomiting. 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 Cognitive needs: No Hearing needs: No Vision needs: Yes (glasses) Physical Exam Vital Signs: Last Vital Signs Temp 97.9 F 10/30/23 10:27 Pulse 73 10/30/23 10:27 BP 134/82 10/30/23 10:27 Pulse Ox 98 10/30/23 10:27 Oxygen Delivery Method Room Air 10/30/23 10:27 BMI result Body Mass Index 50.1 Const General: cooperative and healthy appearing Nutritional Appearance: well nourished Orientation/consciousness: patient oriented x3 Limitations: no limitations HEENT Head: Yes normal to inspection Eyes General: appearance normal, both eyes and all related structures Neck Neck: Yes normal visual inspection Chest Chest palpation & inspection: normal palpation of entire chest wall Resp Effort & Inspection: normal respiratory effort Neuro General: patient oriented x3 Office Procedures EKG Details: Normal sinus rhythm 22556-Tpzamumjrbmbkqgzb, Complete Assessment & Plan Assessment & Plan (1) Chest pain: Code(s): R07.9 - Chest pain, unspecified Plan: Patient was encouraged to go to the ER. DVT or PE is a possibility. EKG and physical exam was unremarkable. Orders: Orders AMB EKG-In Office Today R07.9 - Chest pain, unspecified Coding Level of Care Code Est Pt Level 4 (74539) Diagnoses Chest pain R07.9 CPT Codes EKG - CPT: 03390-Uzxphezgdmohhvgia, Complete ([id number])
[2023-10-30 10:27] VITALS: BP 134/82; PULSE 73; TEMP 36.6; O2SAT 98; BMI 50.1
== END 2023-10-30 11:32 | disposition home or self-care (01) ==
PROVIDERS: PCP Internal Medicine; Visit Provider Internal Medicine
DX: R07.9 Chest pain, unspecified (principal)
CPT/HCPCS: 93000; 99214

== ENCOUNTER 2023-10-30 11:40 | Emergency (ER) | payer BC, SELFPAY ==
--- NOTE | ~2023-10-30 | XR_ITS ---
EXAMINATION: XR CHEST CLINICAL INFORMATION: Chest heaviness, patient states chest pain. COMPARISON: December 25, 2018, August 10, 2018. TECHNIQUE: 3 views of the chest. FINDINGS: There is no gross pneumothorax. Heart size is normal. No significant pleural effusion. Low lung volumes. No focal consolidation. XR/XR chest 2V IMPRESSION: Low lung volumes. No focal consolidation to suggest pneumonia. This study was presented today October 30, 2023 for interpretation. Stat results provided at this time as requested by referring provider.
--- NOTE | ~2023-10-30 | CT_ITS ---
EXAMINATION: CT CHEST PE STUDY CLINICAL INFORMATION: Chest tightness. Elevated d-dimer. COMPARISON: Chest x-ray dated 10/30/2023. TECHNIQUE: Prior to contrast administration, localization images were obtained. After the administration of 65 mL of intravenous Omnipaque 350, multidetector CT volume acquisition of the chest was performed. 3-D postprocessing was performed with multiplanar reconstructions and MIP images obtained at the acquisition workstation under concurrent physician supervision. This CT examination was performed using dose optimization techniques as appropriate, variously including the following: *Automated exposure control *Adjustment of mA and/or kV according to patient size (this includes techniques or standardized protocols for targeted exams where dose is matched to indication/reason for exam; i.e. extremities or head) *Use of iterative reconstruction technique DLP: 311 mGy-cm. FINDINGS: Pulmonary arteries: The bolus timing on this study was acceptable for visualization of the pulmonary arterial tree. There are no central or segmental pulmonary emboli. Lungs: Low lung volumes are seen with scattered areas of linear atelectasis, most prominent in both lower lobes. There are a few scattered solid noncalcified nodules based on the right major fissure and based in the posterior pleural surface in the superior segment of the right lower lobe (series 10, images 176 and 180), most consistent with small intrapulmonary lymph nodes. No suspicious pulmonary nodule, mass, pleural effusion or pneumothorax. The central airways are patent. Aorta and heart: The heart is normal in size. The aorta is normal. There is no pericardial effusion, No ventricular septal bowing seen to suggest right heart strain. Lymphatic structures: There is no lymphadenopathy. Upper abdomen: Limited evaluation of the upper abdominal viscera demonstrates splenomegaly with AP diameter of the spleen measuring 14.2 cm. Minimal reflux of contrast into the IVC and central intrahepatic veins is seen, perhaps related to force of injection versus less likely elevated right heart pressures. Bones: No significant focal findings. CT/CT angio chest PE protocol IMPRESSION: 1. No evidence of pulmonary embolism. 2. Low lung volumes with scattered areas of linear atelectasis. 3. Splenomegaly. VTE: Negative.
--- NOTE | 2023-10-30 12:04 | ED.CHESTPAIN ---
HPI - Chest Pain General Chief Complaint: Dyspnea Stated Complaint: Heaviness in chest Time Seen by Provider: 10/30/23 12:34 Source: patient Mode of arrival: ambulatory Limitations: no limitations History of Present Illness HPI narrative: This is a patient's for evaluation of chest tightness. She states that she had a 6 days ago. She reports her 6 day old son is doing well. She states waking up this morning at 3:00 a.m. sensation of chest tightness. She states mild dyspnea with exertion. She states no pleuritic chest pain. She states no fevers or chills. She has some cough or hemoptysis. She states no previous history of DVT/PE. She states no family history of venous thromboembolism. She states her only medications right now ibuprofen, Tylenol, vitamin, stool softener and as needed oxycodone. She states no back pain or abdominal pain. She states no nausea or vomiting. She states no urinary symptoms. She reports having normal bowel movements without difficulty. She states no melena or hematochezia. She states no trauma or falls. She states no lightheadedness or syncope. She states that she went to an urgent care and they did an EKG, which she was told looked normal. She was told to come to the emergency room for evaluation of potential pulmonary embolism. She states no cardiac or pulmonary medical history. She states no history of malignancy. Related Data Home Medications ?Medication ?Instructions ?Recorded ?Confirmed acetaminophen 325 mg tablet 975 mg PO Q6H PRN pain 10/30/23 oxycodone 5 mg tablet 5 mg PO Q3H PRN severe pain 10/30/23 polyethylene glycol 3350 17 17 g PO DAILY 10/30/23 gram/dose oral powder (Gavilax) sennosides 8.6 mg-docusate sodium 1 tab-cap PO QPM 10/30/23 50 mg tablet (Senexon-S) Allergies Allergy/AdvReac Type Severity Reaction Status Date / Time amoxicillin Allergy Intermediate rash Verified 10/30/23 12:10 Review of Systems Review of Systems: ROS as per HPI [facility] Past Medical History Medical History (Updated 10/30/23 @ 16:59 by Js Burks MD) No pertinent past medical history Surgical History (Updated 01/25/22 @ 10:55 by ZITA Guadalupe) No history of previous surgery Social History Social History Housing: House Alcohol intake: never Patient Tobacco Use Status: Never used Tobacco Smoked in Last 30 Days: No e-Cigarette/Vaping Use: Never Used Second Hand Smoke Exposure: No Use of substances other than those prescribed or required for medical reasons: No Advance Directives: Yes Advance Directives Information Provided: Yes Advance Directives on File: No Patient : No service: No Current occupational status: employed 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 Cognitive needs: No Hearing needs: No Vision needs: Yes (glasses) Physical Exam Vital Signs: Vital Signs: Last Vital Signs Temp 98.3 F 10/30/23 16:00 Pulse 108 H 10/30/23 16:00 Resp 18 10/30/23 16:00 BP 150/77 H 10/30/23 16:00 Pulse Ox 99 10/30/23 16:00 O2 Del Method Room Air 10/30/23 16:00 BMI result Body Mass Index 47.0 Gen: NAD, AOx3 HEENT: NCAT, EOMI, normal conjunctiva CV: RRR, no murmurs appreciated Pulm: CTAB, no increased work of breathing GI: Soft, NTND, no rebound, guarding or rigidity MSK: No asymmetrical calf edema/erythema/tenderness to palpation Neuro: Grossly non focal Course Course Course Narrative: This is a Rapid Medical Examination (RME) performed by Shannon Plummer PA-C in triage. Full HPI, ROS, assessment and treatment plan per primary provider in the Main ED. 33 yo female 6 days s/p emergent c section here for eval of chest heaviness which woke her from sleep at 0300 this morning. states it feels like someone is sitting on her chest. denies dyspnea, SOB, N/V, dizziness, YUNG, vision changes. saw at walk in this morning - EKG normal. sent here to r/o PE. + vitals stable. not tachy. not hypoxic. well appearing. speaking in complete sentences. RRR. lungs CTA. Plan: labs, ekg, cxt, coag Medications Administered Discontinued Medications Generic Name Dose Route Start Last Admin Trade Name Freq PRN Reason Stop Dose Admin Iohexol 65 ml 10/30/23 14:51 10/30/23 14:51 Iohexol 350 Mg/Ml 100 Ml Infus..Btl IV 10/30/23 14:52 65 ml ONCE ONE Administration Medical Decision Making Medical Decision Making MDM Narrative: Differential diagnosis includes, but is not limited to anxiety, gastroesophageal reflux, acute coronary syndrome, pulmonary embolism. Patient is low risk for Wells score for PE (1.5 points) given recent hospitalization/surgery within the last 4 weeks. Thus, we will obtain D-dimer for further risk stratification. Overall clinical suspicion is low given the lack of tachypnea, tachycardia and hypoxia. Patient is afebrile and hemodynamically stable on room air. Exam is benign and reassuring. I independently interpreted and reviewed patient's labs. Patient has anemia of 9.1, which is new but there is no indication for transfusion of packed red blood cells and shock index is reassuring and I do not suspect any occult hemorrhagic shock. Labs otherwise notable for elevated D-dimer 2663 and thus will obtain CT imaging for evaluation of pulmonary embolism. Otherwise labs are reassuring as below. I reviewed and interpreted EKG, which is unremarkable for any acute findings. I reviewed patient's chest x-ray as below, which is unremarkable for any acute process. I reviewed radiology impression of chest x-ray and CT imaging as below. CT imaging does not demonstrate any acute findings or pulmonary embolism. There is noted atelectasis and splenomegaly. I reviewed the CT findings with the patient. On re-examination, patient is well-appearing and in no acute distress. ?Patient states symptoms have resolved. ?There is no indication for further emergent evaluation in this otherwise well-appearing patient as above. ?Patient is provided written and verbal instructions, educational materials, recommendations for outpatient follow-up, strict return precautions and teach back is performed. ?Patient states understanding and agreement with plan of care. ?Patient is discharged home in stable and improved condition. Admission/Observation Consideration of admission/observation: Escalation of care including admission/observation considered Lab Data MDM Lab Attestation statement: I reviewed the patient's lab results. I independently interpreted and reviewed patient's labs. Patient has anemia of 9.1, which is new but there is no indication for transfusion of packed red blood cells and shock index is reassuring and I do not suspect any occult hemorrhagic shock. Labs otherwise notable for elevated D-dimer 2663 and thus will obtain CT imaging for evaluation of pulmonary embolism. Otherwise labs are reassuring as below. 10/30/23 12:54 10/30/23 12:54 Labs: Lab Results 10/30/23 Range/Units 12:54 WBC 8.1 (4.8-10.8) X10*3/uL RBC 3.24 L (4.20-5.50) X10*6/uL Hgb 9.1 L (12.0-16.0) g/dl Hct 26.5 L (37.0-47.0) % MCV 81.8 (80.0-98.0) fL MCH 28.1 (27.0-33.0) pg MCHC 34.3 (31.0-35.0) g/dl RDW 13.7 (11.0-16.0) % Plt Count 291 (160-400) X10*3/uL MPV 10.2 (9.4-12.3) fL Immature Gran % (Auto) 1.4 H (0.0-0.4) % Neut % (Auto) 69.6 (45-73) % Lymph % (Auto) 22.8 (20-40) % Ralls % (Auto) 5.1 (2-11) % Eos % (Auto) 0.7 (0-4) % Baso % (Auto) 0.4 (0-2) % Lymph # (Auto) 1.9 (1.2-4.9) X10*3/uL Ralls # (Auto) 0.4 (0.1-1.2) X10*3/uL Eos # (Auto) 0.1 (0.0-0.4) X10*3/uL Baso # (Auto) 0.0 (0.0-0.2) X10*3/uL Abs Immat Gran (auto) 0.11 H (0.00-0.03) X10*3/uL Absolute Neuts (auto) 5.6 (2.0-8.3) x10*3/uL Absolute Nucleated RBC 0.000 (0.0-0.012) X10*3/uL Nucleated RBC % (auto) 0.0 (0.0-0.2) /100WBC PT 10.7 L (11.1-13.3) SEC INR 0.9 (0.9-1.1) D-Dimer High Sensitivty 2663 NG/ML Sodium 141 (135-145) mmol/L Potassium 3.9 (3.3-5.1) mmol/L Chloride 109 H (96-108) mmol/L Carbon Dioxide 24 (22-29) mmol/L Anion Gap 12 (12-20) BUN 16 (9-16) mg/dL Creatinine 0.72 (0.5-1.4) mg/dL Estim Creat Clear Calc 158.0 Estimated GFR > 60 Random Glucose 87 (60-115) mg/dL Calcium 9.2 (8.4-10.2) mg/dL Magnesium 1.9 (1.6-2.6) mg/dL Total Bilirubin 0.2 (0.0-1.0) mg/dL AST 25 (5-31) U/L ALT 24 (0-31) U/L Alkaline Phosphatase 125 H (39-117) U/L Troponin I High Sens < 2.7 (<3.5-17.0) ng/L Total Protein 6.7 (6.5-8.0) g/dL Albumin 3.4 L (3.5-5.0) g/dL Lipase 16 (8-78) U/L Urine Color Yellow Urine Appearance Clear Urine pH 6.0 (5.0-9.0) Ur Specific [place] <= 1.005 (1.005-1.025) Urine Protein Negative (Neg-Trace) mg/dL Urine Glucose (UA) Negative (Negative) mg/dL Urine Ketones Negative (Negative) mg/dL Urine Blood Small (1+) H (Negative) Urine Nitrite Negative (Negative) Ur Leukocyte Esterase Negative (Negative) Urine RBC 0-2 (0-2) /HPF Urine WBC 0-5 (0-5) /HPF Ur Squamous Epith Cells 0-2 (0-2) /HPF Urine Bacteria None Seen (None Seen) Hyaline Casts 0-2 (0-2) /LPF Independent Interpretation I performed an independent interpretation of an: EKG and Plain X-Ray Interpretation: I independently reviewed and interpreted the patient's EKG, which demonstrates sinus bradycardia with sinus arrhythmia at 57 beats per minute, NJ 116, QRS 86, QTC 418, no STEMI. I independently reviewed interpreted the patient's chest x-ray which demonstrates no focal consolidation or pneumothorax. Radiology Impression Discussion of test interpretation with radiology: I have reviewed the radiologist's reading. Radiologist Impression: XR/XR chest 2V IMPRESSION: Low lung volumes. No focal consolidation to suggest pneumonia. This study was presented today October 30, 2023 for interpretation. Stat results provided at this time as requested by referring provider. Dictated By: Mary Mg MD Signed By: <Electronically signed by Mary Mg MD in OV> 10/30/[address]/CT angio chest PE protocol IMPRESSION: 1. No evidence of pulmonary embolism. 2. Low lung volumes with scattered areas of linear atelectasis. 3. Splenomegaly. VTE: Negative. Dictated By: Vivi Dunbar MD Signed By: <Electronically signed by Vivi Dunbar MD in OV> 10/30/23 1647 Discharge Plan Discharge Clinical Impression: Chest pain Patient Disposition: Home, Self-Care Additional Instructions: You were seen and evaluated in the emergency room. Your vital signs were normal and he did not have fever. ? Your blood work was overall very reassuring. Your D-dimer did come back elevated so we obtained a CT imaging for evaluation of a pulmonary embolism (blood clot in your lungs). Your CT images did not demonstrate any evidence of a pulmonary embolism. Your CT images did demonstrate an enlarged spleen. Please follow-up with your primary care doctor to discuss this finding. In the meantime, please avoid any activities that increase your risk of abdominal trauma. Your chest x-ray and EKG were normal. Please follow-up with your primary care doctor in the next 5-7 days. ? Please return to the emergency room if you develop any worsening symptoms including, but not limited to fever, chest pain or difficulty breathing. ? Prescriptions: No Action sennosides-docusate sodium [Senexon-S] 8.6-50 mg tablet 1 tab-cap PO QPM acetaminophen 325 mg tablet 975 mg PO Q6H PRN (Reason: pain) polyethylene glycol 3350 [Gavilax] 17 gram/dose powder 17 g PO DAILY oxycodone 5 mg tablet 5 mg PO Q3H PRN (Reason: severe pain) Print Language: [place]
[2023-10-30 12:06] VITALS: BP 155/88; PULSE 63; RESP 16; TEMP 36.8; O2SAT 99; BMI 47.0
--- NOTE | 2023-10-30 12:09 | ECG_ITS ---
Test Reason : CHEST HEAVINESS Blood Pressure : / mmHG Vent. Rate : 057 BPM Atrial Rate : 057 BPM P-R Int : 116 ms QRS Dur : 086 ms QT Int : 430 ms P-R-T Axes : 001 014 015 degrees QTc Int : 418 ms Sinus bradycardia with sinus arrhythmia Otherwise normal ECG No previous ECGs available Referred By: Vicky Plummer Electronically Signed By:LISBETH BARRAGAN MD
[2023-10-30 13:00] LABS: MANUAL DIFF FLAG NO
[2023-10-30 13:03] LABS: Basophils Percent Auto 0.4 % (0-2); Eosinophils Absolute Auto 0.1 X10*3/uL (0.0-0.4); Eosinophils Percent Auto 0.7 % (0-4); Hematocrit 26.5 % (37.0-47.0); Hemoglobin 9.1 g/dl (12.0-16.0); Imm Gran Abs Auto 0.11 X10*3/uL (0.00-0.03); Imm Gran Pct Auto 1.4 % (0.0-0.4); Lymphocytes Absolute Auto 1.9 X10*3/uL (1.2-4.9); Lymphocytes Percent Auto 22.8 % (20-40); Mean Corpuscular HGB Conc 34.3 g/dl (31.0-35.0); Mean Corpuscular Hemoglobin 28.1 pg (27.0-33.0); Mean Corpuscular Volume 81.8 fL (80.0-98.0); Mean Platelet Volume 10.2 fL (9.4-12.3); Monocytes Absolute Auto 0.4 X10*3/uL (0.1-1.2); Monocytes Percent Auto 5.1 % (2-11); Neutrophils Absolute Auto 5.6 x10*3/uL (2.0-8.3); Neutrophils Percent Auto 69.6 % (45-73); Platelet Count 291 X10*3/uL (160-400); Red Blood Count 3.24 X10*6/uL (4.20-5.50); Red Cell Distribution Width 13.7 % (11.0-16.0); White Blood Count 8.1 X10*3/uL (4.8-10.8)
[2023-10-30 13:05] LABS: Appearance Urine Clear; Color Urine Yellow; Glucose Urine UA Negative (Negative); Leukocyte Esterase Urine Negative (Negative); Nitrite Urine Negative (Negative); Specific Gravity - Urine <= 1.005 (1.005-1.025); UMIC TRIGGER UACC YES; Urine Blood Small (1+) (Negative); Urine Ketones Negative (Negative); Urine Protein Negative (Neg-Trace)
[2023-10-30 13:10] LABS: INTERNATIONAL NORM RATIO 0.9 (0.9-1.1); Prothrombin Time 10.7 SEC (11.1-13.3)
[2023-10-30 13:12] LABS: D Dimer High Sensitivity 2663 NG/ML
[2023-10-30 13:18] LABS: Alanine Aminotransferase 24 U/L (0-31); Albumin Level 3.4 g/dL (3.5-5.0); Alkaline Phosphatase 125 U/L (39-117); Anion Gap 12 (12-20); Aspartate Amino Transferase 25 U/L (5-31); Bilirubin Total 0.2 mg/dL (0.0-1.0); Blood Urea Nitrogen 16 mg/dL (9-16); Calcium 9.2 mg/dL (8.4-10.2); Carbon Dioxide 24 mmol/L (22-29); Chloride 109 mmol/L (96-108); Estimated Glomerular Filt Rate > 60; Glucose Random 87 mg/dL (60-115); Lipase 16 U/L (8-78); Magnesium 1.9 mg/dL (1.6-2.6); Potassium 3.9 mmol/L (3.3-5.1); Sodium 141 mmol/L (135-145); Total Protein 6.7 g/dL (6.5-8.0)
[2023-10-30 13:20] LABS: Bacteria Urine None Seen (None Seen); Hyaline Casts Urine 0-2 /LPF (0-2); RBC Urine 0-2 /HPF (0-2); Squamous Epithelial Cell Urine 0-2 /HPF (0-2); WBC Urine 0-5 /HPF (0-5)
[2023-10-30 13:27] LABS: Troponin-I High Sensitivity < 2.7 ng/L (<3.5-17.0)
[2023-10-30 14:00] VITALS: BP 155/86; PULSE 51; RESP 14; O2SAT 98
[2023-10-30] MEDS: iohexoL 350 MG/ML 100 ML INFUS..BTL 65 ML IV (14:51)
--- NOTE | 2023-10-30 15:13 | MHC.EDTECH ---
This tech went to introduce herself, pt asked to go to the bathroom, pt ambuated to the bathroom, voided urine and had DM, call shaver within reach.
--- NOTE | 2023-10-30 15:46 | PC.NURSE ---
Assumed care of this patient at 1500, patient resting quietly on stretcher on return from CTA scan. No issues noted at this time, awaiting CTA results.
[2023-10-30 16:00] VITALS: BP 150/77; PULSE 108; RESP 18; TEMP 36.8; O2SAT 99
[2023-10-30 17:34] VITALS: BP 145/83; PULSE 53; RESP 16; TEMP 37.1; O2SAT 100
== END 2023-10-30 17:35 | disposition home or self-care (01) ==
PROVIDERS: Physician Assistant Medical; Emergency Provider Emergency Medicine; PCP Internal Medicine
DX: R07.89 Other chest pain (principal); R06.00 Dyspnea, unspecified; R05.9 Cough, unspecified
CPT/HCPCS: 36415; 71046; 71275; 80053; 81001; 81003; 83690; 83735; 84484; 85025; 85379; 85610; 93005; 99284; 99285; Q9967

== ENCOUNTER → 2023-10-30 12:09 | Outpatient (BNV) | payer BC, SELFPAY | PROVIDERS: Emergency Provider Emergency Medicine; PCP Internal Medicine; Visit Provider Internal Medicine Cardiovascular Disease | DX: R07.89 Other chest pain (principal); R00.1 Bradycardia, unspecified | CPT/HCPCS: 93010 ==

== ENCOUNTER 2024-03-27 11:15 | Outpatient (AMB) | payer BC, SELFPAY ==
--- NOTE | 2024-03-27 11:17 | MHC.PC.OV ---
Vital Signs 03/27/24 11:19 Height 5 ft 6 in Weight 290 lb 8 oz BMI 46.9 BP 110/72 Blood Pressure Location Lt brachial Position Sitting Pulse 90 Pulse Source Pulse Oximeter Pulse Oximetry (%) 99 Oxygen Delivery Method Room Air Intake Visit Reasons: Cramps and stomach pain Intake Note: Patient is here to follow up on Cramps and stomach pains. Pt decline flu shot today Staff Development Educator Required: No Senior Director Marketing: Not Required per policy Accompanied by: Self / Same As Patient Allergies amoxicillin Allergy (Intermediate, Verified 03/27/24 11:18) rash Medication List - Last Reconciled 03/27/24 by Mariusz Albarado MD azithromycin take 500 mg today (day 1), then 250 mg for 4 days (days 2-5) PO Tobacco use date assessed: 03/27/24 Dental Screening Dental Screen Date: 03/27/24 Did you have a dental visit in the last 12 months?: No Did you have a dental problem in the last 6 months where you did not have access to dental care?: No Was dental information given to patient?: No HPI Cramps and stomach pain HPI Details cough for a week; congested [facility] Medical History (Updated 03/27/24 @ 12:37 by Mariusz Albarado MD) No pertinent past medical history Surgical History (Updated 03/27/24 @ 11:22 by ZITA Guadalupe) History of delivery Social History Housing: House Alcohol intake: never Patient Tobacco Use Status: Never used Tobacco e-Cigarette/Vaping Use: Never Used Second Hand Smoke Exposure: No service: No Current occupational status: employed 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 1. Little interest or pleasure in doing things: not at all 2. Feeling down, depressed, or hopeless: not at all 3. Trouble falling or staying asleep, or sleeping too much: not at all 4. Feeling tired or having little energy: not at all 5. Poor appetite or overeating: not at all 6. Feeling bad about yourself - or that you are a failure or have let yourself or your family down: not at all 7. Trouble concentrating on things, such as reading the newspaper or watching television: not at all 8. Moving or speaking so slowly that other people could have noticed. Or the opposite - being so fidgety or restless that you have been moving around a lot more than usual: not at all 9. Thoughts that you would be better off or of hurting yourself in some way: not at all Total score: 0 Depression Screening Interpretation: Negative Depression Screening Done: Yes Source: Developed by Drs. Shahram Peñaloza, Mervat Escobedo, Chava Jason and colleagues, with an educational micheal from [employer]. Thrive Questionnaire Date Thrive assessed: 03/27/24 I am a: Patient What is your living situation today?: I have a steady place to live Within the past 12 months, did the food you bought not last and you didn't have the money to get more?: Never true Within the past 12 months, did you worry whether your food would run out before you got money to buy more?: Never true Do you have trouble paying for medicines?: No Do you have trouble getting transportation to medical appointments?: No Do you have trouble paying your heating and electricity bill?: No Do you have trouble taking care of your child, family member or friend?: No Do you have trouble with day-to-day activities such as bathing, preparing meals, shopping, managing finances, etc.?: No Are you currently unemployed and looking for a job?: No Are you interested in more education?: No Currently or been in a relationship where the following occur: No concerns reported THRIVE Score: 0 AUDIT C Alcohol Use Questionnaire (AUDIT-C) 1. How often do you have a drink containing alcohol?: Never 2. How many drinks containing alcohol do you have on a typical day when you are drinking?: 1 or 2 3. How often do you have six or more drinks on one occasion?: Never Total Score: 0 MEKHI-7 AMB Questionnaire MEKHI-7 Date MEKHI - 7 assessed: 03/27/24 Feeling nervous, anxious, or on edge: 0 = Not at all Not being able to stop or control worryin = Not at all Worrying too much about different things: 0 = Not at all Trouble relaxin = Not at all Being so restless that it is hard to sit still: 0 = Not at all Becoming easily annoyed or irritable: 0 = Not at all Feeling afraid as if something awful might happen: 0 = Not at all Total MEKHI-7 score (0-4 normal; 5-9 mild; 10-14 moderate; 15-21 severe): 0 Source: Developed by Drs. Shahram Peñaloza, Mervat Escobedo, Chava Jason and colleagues, with an educational micheal from [employer]. Review of Systems Const Denies chills, Denies headache(s) and Denies weight loss ENT Denies headache(s) Card Denies chest pain, Denies syncope, Denies irregular heart rhythm and Denies dyspnea Resp Denies dyspnea GI Denies abdominal pain, Denies change in stool character, Denies nausea and Denies vomiting Musc Denies deformity and Denies joint swelling Neuro Denies syncope and Denies headache(s) Physical exam (Primary Care) Vital Signs: Last Vital Signs Pulse 90 03/27/24 11:19 BP 110/72 03/27/24 11:19 Pulse Ox 99 03/27/24 11:19 Oxygen Delivery Method Room Air 03/27/24 11:19 BMI result Body Mass Index 46.9 Tobacco/Smoking Status: Tobacco use Status Tobacco use date assessed 03/27/24 03/27/24 11:23 Patient Tobacco Use Status Never used Tobacco 03/27/24 11:23 e-Cigarette/Vaping Use Never Used 03/27/24 11:23 PHQ-9: PHQ-9 Score PHQ-9: Total score 0 03/27/24 11:23 Depression Screening Interpretation: Negative Thrive Assessment: Date of Thrive Assessment Date Thrive assessed 03/27/24 03/27/24 11:23 Currently or been in a relationship where the following occur: No concerns reported Coding Level of Care Code Est Pt Level 3 (57037) Diagnoses Cough R05.9 Assessment & Plan Assessment & Plan (1) Cough: Code(s): R05.9 - Cough, unspecified Plan: rx sent Orders: Referrals Gastroenterology Referral K63.5 - Polyp of colon Medications: New azithromycin take 500 mg today (day 1), then 250 mg for 4 days (days 2-5) PO 6 tabs 0RF
[2024-03-27 11:19] VITALS: BP 110/72; PULSE 90; O2SAT 99; BMI 46.9
== END 2024-03-27 11:32 | disposition home or self-care (01) ==
PROVIDERS: PCP Internal Medicine; Visit Provider Internal Medicine
DX: R05.9 Cough, unspecified (principal)

== ENCOUNTER → 2024-03-27 11:15 | Outpatient (BNVA) | payer BC, SELFPAY | PROVIDERS: PCP Internal Medicine; Visit Provider Internal Medicine ==

== ENCOUNTER 2024-07-31 11:16 | Outpatient (REF) | payer BC, SELFPAY ==
--- OUTSIDE RECORDS SUMMARY | 2024-07-31 12:47 | XMS_ITS ---
Author Organization [facility] Address [address] [place] [address] Care Team Providers Care Bioinformatics Engineer Name Role Phone Mariusz Albarado MD Primary Care Provider Shahram Tapia [phone] Allergies Allergen (clinical drug ingredient) Drug/Non Drug Allergy documented on EMR Reaction Allergy Type Onset Date Status coconut allergenic extract Coconut (Diagnostic) Unknown Drug Allergy Active REASON FOR VISIT Patient presents today for ABDOMINAL PAIN Social History Tobacco Use: Social History Observation Description Date Details (start date - stop date) Never Smoker NA - NA Tobacco Control (Standard) Question Answer Notes Tobacco use: Nonsmoker AUDIT-C (Standard) Question Answer Notes Did you have a drink containing alcohol in the p ast year? No Points 0 Interpretation Negative Problems Problem Type SNOMED Code ICD Code Onset Dates Problem Status W/U Status Risk Notes Problem Irritable bowel syndrome with diarrhea (921106090) Irritable bowel syndrome with diarrhea (K58.0) Active confirmed Problem History of polyp of colon (situation) (781389061) Personal history of colonic polyps (Z86.010) Active confirmed Problem Colon cancer screening (036630763) Colon cancer screening (Z12.11) Active confirmed Problem Left upper quadrant pain (791992488) LUQ abdominal pain (R10.12) Active confirmed Vital Signs Blood pressure systolic 111 mm Hg 08/01/19 25 Blood pressure diastolic 77 mm Hg 025 Height 66 in 07/31/2024 Weight 293 lbs 07/31/2024 BMI 47.29 kg/m2 07/31/2024 Procedures Procedure Date Ordered Date Performed Result Body Sit e UPPER GI ENDOSCOPY 07/31/2024 N/A COLONOSCOPY 07/31/2024 N/A Encounters Encounter Location Date Provider Diagnosis [facility] [address] [place] [address] 07/31/2024 Shahram Stuart Irritable bowel syndrome with diarrhea K58.0 ; Personal history of colonic polyps Z86.010 ; Colon cancer screening Z12.11 and LUQ abdominal pain R10.12 Assessments Encounter Date Diagnosis (ICD Code) Assessment Notes Treatment Notes Treatment Clinical Notes Section Notes 07/31/2024 Irritable bowel syndrome with diarrhea (ICD-10 - K58.0) Overall, Cynthia appears well and I advised her that her current symptoms seem most consistent with that of an irritable bowel syndrome given the description of her postprandial diarrhea and left upper quadrant discomfort, as well as her good clinical appearance. 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 I did recommend a colonoscopy for further evaluation given her report history of polyps. We did review the rationale for that in regard to colorectal cancer prevention as well as to check for anything else such as inflammatory bowel disease or microscopic colitis. I also recommended an upper endoscopy on the same day given her ongoing upper abdominal pain. I advised her that I would obtain biopsies to check for H. pylori and celiac disease. Full consent has been made from her for both procedures, including risks of bleeding and perforation. The procedures will be done with monitored anesthesia care. I will try to obtain copies of her previous GI studies as well as the more recent imaging studies that she had at [facility] Cynthia was comfortable with this plan. Thank you again for allowing me to participate in Cynthia's care. I shall continue to keep you advised of her progress. 07/31/2024 Personal history of colonic polyps (ICD-10 - Z86.010) Overall, Cynthia appears well and I advised her that her current symptoms seem most consistent with that of an irritable bowel syndrome given the description of her postprandial diarrhea and left upper quadrant discomfort, as well as her good clinical appearance. 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 I did recommend a colonoscopy for further evaluation given her report history of polyps. We did review the rationale for that in regard to colorectal cancer prevention as well as to check for anything else such as inflammatory bowel disease or microscopic colitis. I also recommended an upper endoscopy on the same day given her ongoing upper abdominal pain. I advised her that I would obtain biopsies to check for H. pylori and celiac disease. Full consent has been made from her for both procedures, including risks of bleeding and perforation. The procedures will be done with monitored anesthesia care. I will try to obtain copies of her previous GI studies as well as the more recent imaging studies that she had at [facility] Cynthia was comfortable with this plan. Thank you again for allowing me to participate in Cynthia's care. I shall continue to keep you advised of her progress. 07/31/2024 Colon cancer screening (ICD-10 - Z12.11) Overall, Cynthia appears well and I advised her that her current symptoms seem most consistent with that of an irritable bowel syndrome given the description of her postprandial diarrhea and left upper quadrant discomfort, as well as her good clinical appearance. 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 I did recommend a colonoscopy for further evaluation given her report history of polyps. We did review the rationale for that in regard to colorectal cancer prevention as well as to check for anything else such as inflammatory bowel disease or microscopic colitis. I also recommended an upper endoscopy on the same day given her ongoing upper abdominal pain. I advised her that I would obtain biopsies to check for H. pylori and celiac disease. Full consent has been made from her for both procedures, including risks of bleeding and perforation. The procedures will be done with monitored anesthesia care. I will try to obtain copies of her previous GI studies as well as the more recent imaging studies that she had at [facility] Cynthia was comfortable with this plan. Thank you again for allowing me to participate in Cynthia's care. I shall continue to keep you advised of her progress. 07/31/2024 LUQ abdominal pain (ICD-10 - R10.12) Overall, Cynthia appears well and I advised her that her current symptoms seem most consistent with that of an irritable bowel syndrome given the description of her postprandial diarrhea and left upper quadrant discomfort, as well as her good clinical appearance. 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 I did recommend a colonoscopy for further evaluation given her report history of polyps. We did review the rationale for that in regard to colorectal cancer prevention as well as to check for anything else such as inflammatory bowel disease or microscopic colitis. I also recommended an upper endoscopy on the same day given her ongoing upper abdominal pain. I advised her that I would obtain biopsies to check for H. pylori and celiac disease. Full consent has been made from her for both procedures, including risks of bleeding and perforation. The procedures will be done with monitored anesthesia care. I will try to obtain copies of her previous GI studies as well as the more recent imaging studies that she had at [facility] Cynthia was comfortable with this plan. Thank you again for allowing me to participate in Cynthia's care. I shall continue to keep you advised of her progress. 07/31/2024 Other Need 03/2014 GI procedures and path reports [facility] Need 02/2024 U/S and CT reports from [facility] Overall, Cynthia appears well and I advised her that her current symptoms seem most consistent with that of an irritable bowel syndrome given the description of her postprandial diarrhea and left upper quadrant discomfort, as well as her good clinical appearance. 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 I did recommend a colonoscopy for further evaluation given her report history of polyps. We did review the rationale for that in regard to colorectal cancer prevention as well as to check for anything else such as inflammatory bowel disease or microscopic colitis. I also recommended an upper endoscopy on the same day given her ongoing upper abdominal pain. I advised her that I would obtain biopsies to check for H. pylori and celiac disease. Full consent has been made from her for both procedures, including risks of bleeding and perforation. The procedures will be done with monitored anesthesia care. I will try to obtain copies of her previous GI studies as well as the more recent imaging studies that she had at [facility] Cynthia was comfortable with this plan. Thank you again for allowing me to participate in Cynthia's care. I shall continue to keep you advised of her progress. Plan Of Treatment Treatment Notes Assessment Notes Other Need 03/2014 GI procedures and path reports [facility] Need 02/2024 U/S and CT reports from [facility] Pending Test Test Name Order Date UPPER GI ENDOSCOPY 07/31/2024 COLONOSCOPY 07/31/2024 CRP 07/31/2024 SED RATE (ESR) 07/31/2024 CELIAC PANEL #10 07/31/2024 C DIFFICILE RFLX PCR 07/31/2024 GI PANEL 07/31/2024 Next Appt Details Provider Name:Shahram Johnnie Stuart , 10/27/2024 09:30:00 AM, [address] [place] [address] , [place], [place], [phone], Progress Notes * CYNTHIA TRANDOB: 3 (34 yo F)Acc No.[id number]:07/31/2024 Progress Notes Patient:?CYNTHIA TRAN Provider:?Shahram Stuart MD :1990???Age:34 Y???Sex:Female D ate:07/31/2024 Address:[address] [place] [address] [address] [facility], [place], [id number] Pcp:Mariusz Albarado MD Subjective: * Chief Complaints: * ???1. Patient presents today for ABDOMINAL PAIN. * HPI: ???incontinence:? I saw Cynthia in consultation today regarding further evaluation of her abdominal pain, diarrhea, and reported history of polyps. As you know, Cynthia is a healthy 34-year-old female who has been having several months of ongoing issues with postprandial diarrhea and left upper quadrant pain. She describes some associated urgency with her bowel movements. She describes that the postprandial diarrhea is just about with every meal and not related to any specific food. She describes at least 4-5 loose bowel movements per day. She has not noticed any hematochezia nor melena. She denies any fevers, jaundice, urinary symptoms, weight loss, nausea, nor vomiting. She denies any significant heartburn nor dysphagia. She describes a good appetite. 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 She describes similar episodes back in 2013 for which she was evaluated by [facility]. She describes having undergone an upper endoscopy and colonoscopy in March 2014. The upper endoscopy was apparently negative but the colonoscopy did reveal some polyps which were removed and she was told to have another exam in 5 years but has not had any colonoscopies since that time. She denies any known family history of colorectal cancer, inflammatory bowel disease, nor celiac disease. She does not use any dairy products with lactose and does not use any significant amounts of caffeine in any form during the day. She was seen at [facility] ER in February and had a reportedly negative ultrasound and CT scan of the abdomen. Laboratories at that time were normal including CBC and liver profile. She has not tried any antispasmodics for her symptoms, although does report having tried things like omeprazole without any improvement. * Medical History:?Denies MS,D M,CVA,Lung disease,renal disease, In March 2014 she had a GI workup at [facility] for the abdominal pain with a colonoscopy and upper endoscopy. The upper endoscopy was reportedly negative and the colonoscopy revealed several polyps which were removed. She was told to have a repeat colonoscopy in 5 years but did not do that.. * Surgical History:? s ection 2023, [place] teeth extraction 2010. * Family History:?Father: dece ased, diagnosed with HTN (hypertension), Heart disease, Diabetes.?Mother: alive, diagnosed with Colon polyps, Heart disease, HTN (hypertension).? no known hx of colon cancer, IBD, celiac disease. * Social History:?Tobacco Use:?Tobacco Control (Standard)?Tobacco use:?Nonsmoker.?Miscellaneous:?Marital status: . 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 ???Drug/Alcohol:?AUDIT-C (Standard)?Did you have a drink containing alcohol in the past year??No,?Points?0,?Interpretation?Negative.? * Medications:?None * Allergies:?Coconut (Diagnost ic). Objective: * Vitals:?Wt:293lbs, Ht:66in, BMI:47.29Index, BP:111/77mm Hg, Ht-cm: 167.64, Wt- k.9. Assessment: * Assessment: 1.?Irritable bowel syndrome with diarrhea - K58.0 (Primary)???2.?Personal history of colonic polyps - Z86.010???3.?Colon cancer screening - Z12.11???4.?LUQ abdominal pain - R10.12??? Overall, Cynthia appears well and I advised her that her current symptoms seem most consistent with that of an irritable bowel syndrome given the description of her postprandial diarrhea and left upper quadrant discomfort, as well as her good clinical appearance. 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 I did recommend a colonoscopy for further evaluation given her report history of polyps. We did review the rationale for that in regard to colorectal cancer prevention as well as to check for anything else such as inflammatory bowel disease or microscopic colitis. I also recommended an upper endoscopy on the same day given her ongoing upper abdominal pain. I advised her that I would obtain biopsies to check for H. pylori and celiac disease. Full consent has been made from her for both procedures, including risks of bleeding and perforation. The procedures will be done with monitored anesthesia care. I will try to obtain copies of her previous GI studies as well as the more recent imaging studies that she had at [facility] Cynthia was comfortable with this plan. Thank you again for allowing me to participate in Cynthia's care. I shall continue to keep you advised of her progress. Plan: * Treatment: 2.?Personal history of colon ic polyps?Procedure: COLONOSCOPY 3.?Colon cancer screening?Procedure: COLONOSCOPY* with MACsched for 10/27/24 at 9:30 ammiralax 4.?LUQ abdominal pain?Procedure: UPPER GI ENDOSCOPY* with MACsched for 10/27/24 at 9:30 am 5.?Others? Notes: Need 03/2014 GI procedures and path reports [facility] Need 02/2024 U/S and CT reports from [facility]?? * Procedure Codes:?80023 DIAGN OSTIC COLONOSCOPY, 53246 UPPR GI ENDOSCOPY, DIAGNOSIS * Preventive Medicine:? ??Counseling:?Care goal follow-up plan:?Above Normal BMI Follow-up?Giving encouragement to exercise,?BMI management provided?Yes.? * * The named appointment provid er may or may not be the originator of this progress note, and it is not deemed complete until electronically signed by the appointment provider. Sign off status: Pending * Provider:?Shahram Stuart MD Date:? 025 Generated for Opal chong/Ana Rosa/eTransmitting on:?07/31/2024 12:47 PM EDT History and Physical Notes * HPI (History of Present Illness) Category Sub-Category Detail Notes Category Not es incontinence I saw Cynthia in consultation today regarding further evaluation of her abdominal pain, diarrhea, and reported history of polyps. As you know, Cynthia is a healthy 34-year-old female who has been having several months of ongoing issues with postprandial diarrhea and left upper quadrant pain. She describes some associated urgency with her bowel movements. She describes that the postprandial diarrhea is just about with every meal and not related to any specific food. She describes at least 4-5 loose bowel movements per day. She has not noticed any hematochezia nor melena. She denies any fevers, jaundice, urinary symptoms, weight loss, nausea, nor vomiting. She denies any significant heartburn nor dysphagia. She describes a good appetite. 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 She describes similar episodes back in 2013 for which she was evaluated by [facility]. She describes having undergone an upper endoscopy and colonoscopy in March 2014. The upper endoscopy was apparently negative but the colonoscopy did reveal some polyps which were removed and she was told to have another exam in 5 years but has not had any colonoscopies since that time. She denies any known family history of colorectal cancer, inflammatory bowel disease, nor celiac disease. She does not use any dairy products with lactose and does not use any significant amounts of caffeine in any form during the day. She was seen at [facility] in February and had a reportedly negative ultrasound and CT scan of the abdomen. Laboratories at that time were normal including CBC and liver profile. She has not tried any antispasmodics for her symptoms, although does report having tried things like omeprazole without any improvement.
--- OUTSIDE RECORDS SUMMARY | 2024-07-31 12:47 | XMS_ITS | Patient Health Record ---
Author Organization [facility] Address [address] [place] [address] Care Team Providers Care Machinist Supervisor Outside Name Role Phone Mariusz Albarado MD Primary Care Provider Shahram Tapia Unavailable [phone] Allergies Allergen (clinical drug ingredient) Drug/Non Drug Allergy documented on EMR Reaction Allergy Type Onset Date Status coconut allergenic extract Coconut (Diagnostic) Unknown Drug Allergy Active Reason For Referral No Information Social History Tobacco Use: Social History Observation [...] Problem Status W/U Status Risk Notes Problem Colon cancer screening (154249842) Colon cancer screening (Z12.11) Active confirmed Problem History of polyp of colon (situation) (811339875) Personal history of colonic polyps (Z86.010) Active confirmed Problem Irritable bowel syndrome with diarrhea (710123319) Irritable bowel syndrome with diarrhea (K58.0) Active confirmed Problem Left upper quadrant pain (406462312) LUQ abdominal pain (R10.12) Active confirmed Vital Signs Blood pressure diastolic 77 mm Hg 07/31/2024 Height 66 in 07/31/2024 Blood pressure systolic 111 mm Hg 07/31/2024 Weight 293 lbs 07/31/2024 BMI 47.29 kg/m2 07/31/2024 Procedures Procedure Date Ordered Date Performed Result Body Sit e UPPER GI ENDOSCOPY 07/31/2024 N/A COLONOSCOPY 07/31/2024 N/A Encounters Encounter Location Date Provider Diagnosis [facility] [address] [place] [address] 07/31/2024 Shahram Stuart Irritable bowel syndrome with diarrhea K58.0 ; Personal history of colonic polyps Z86.010 ; Colon cancer screening Z12.11 and LUQ abdominal pain R10.12 Assessments Encounter Date Diagnosis (ICD Code) Assessment Notes Treatment Notes Treatment Clinical Notes Section Notes 07/31/2024 Personal history of colonic polyps (ICD-10 [...] recent imaging studies that she had at [facility] Cynthia was comfortable with this plan. Thank you again for allowing me to participate in Cynthia's care. I shall continue to keep you advised of her progress. 07/31/2024 Irritable bowel syndrome with diarrhea (ICD-10 [...] recent imaging studies that she had at [facility] Cyntiha was comfortable with this plan. Thank you [...] recent imaging studies that she had at [facility] Cynthia was comfortable with this plan. Thank [...] recent imaging studies that she had at [facility] Cynthia was comfortable with this plan. Thank you again for allowing me to participate in Cynthia's care. I shall continue to keep you advised of her progress. 07/31/2024 Other Need 03/2014 GI procedures and path reports [facility] Need 02/2024 U/S and CT reports from [facility] Overall, Cynthia appears well and I advised [...] recent imaging studies that she had at [facility] Cynthia was comfortable with this plan. Thank you again for allowing me to participate in Cynthia's care. I shall continue to keep you advised of her progress. Plan Of Treatment Pending Test Test Name Order Date UPPER GI ENDOSCOPY 07/31/2024 COLONOSCOPY 07/31/2024 CRP 07/31/2024 SED RATE (ESR) 07/31/2024 CELIAC PANEL #10 07/31/2024 C DIFFICILE RFLX PCR 07/31/2024 GI PANEL 07/31/2024 Next Appt Details Provider Name:Shahram Johnnie Stuart , 10/27/2024 09:30:00 AM, [address] [place] [address], [phone], Insurance Providers Payer Name Payer Address Payer Phone Subscriber Number Group Number Insured Name Patient Relationship to Insured Coverage Start Date Coverage End Date [facility] [id number] [place] [address] [id number] CHELSEA CYNTHIA Self - patient is the insured Medical (General) History Medical History History ICD Code Denies GA,DM,CVA,Lung disease,renal dise ase In March 2014 she had a GI workup at [facility] for the abdominal pain with a colonoscopy and upper endoscopy. The upper endoscopy was reportedly negative and the colonoscopy revealed several polyps which were removed. She was told to have a repeat colonoscopy in 5 years but did not do that. Surgical History Surgery Date(Month/Year) [place] teeth extraction 2010 section 2023
[2024-07-31 13:50] LABS: C Reactive Protein 0.35 mg/dL (< or = 0.50)
[2024-07-31 14:18] LABS: Erythrocyte Sedimentation Rate 11 MM/HR (0-20)
[2024-08-01 10:59] LABS: Immunoglobulin A 247 mg/dL (47-310)
[2024-08-01 14:08] LABS: Gliadin Deamidated IgA Ab 1.7 U/mL; Gliadin Deamidated IgG Ab <1.0 U/mL; Transglutaminase Ab IgG <1.0 U/mL; Transglutaminase IgA <1.0 U/mL
[2024-08-06 23:33] LABS: Endomysial IgA Antibody Negative (Negative)
== END 2024-07-31 11:17 | disposition home or self-care (01) ==
LOC: HO.10HDL 11:16
PROVIDERS: Visit Provider Internal Medicine
DX: K58.0 Irritable bowel syndrome with diarrhea (principal)
CPT/HCPCS: 36415; 82784; 85652; 86140; 86231; 86258; 86364

== ENCOUNTER 2024-10-27 08:13 | Day surgery (SDC) | payer BC, SELFPAY ==
--- OUTSIDE RECORDS SUMMARY | 2024-10-15 12:52 | XMS_ITS | Patient Health Record ---
Author Organization [facility] Address [address] [place] [address] Care Team Providers Care Human Resources Benefits Assistant Name Role Phone Mariusz Albarado MD Primary Care Provider Shahram Tapia [phone] Allergies Allergen (clinical drug ingredient) Drug/Non Drug Allergy documented on EMR Reaction Allergy Type Onset Date Status coconut allergenic extract Coconut (Diagnostic) Unknown Drug Allergy Active Results Component Value Reference Range Notes Erythrocyte Sedimentation Ra te Reviewed date:08/01/2024 01:18:16 AM Interpretation: Performing Lab:[facility], [address] [place] [phone] Notes/Report: Erythrocyte Sedimentation Rate 11 0-20 MM/HR Patients with polycythemia and many hemoglobin abnormalities may have depressed sed rates whereas patients with anemia may have elevated sed rates. C Reactive Protein Reviewed date:08/01/2024 01:18:22 AM Interpretation: Performing Lab:[facility], [address] [place] [phone] Notes/Report: C Reactive Protein 0.35 < or = 0.50 mg/dL Immunoglobulin A Reviewed date:08/10/2024 07:53:41 PM Interpretation: Performing Lab:[facility], [address] [place] [phone] Notes/Report: Immunoglobulin A 247 47-310 mg/dL THIS TEST WAS PERFORMED AT: [facility] [address] [place] [phone] ELENA SOUZA MD Transglutaminase Ab IgG Reviewed date:08/10/2024 07:53:31 PM Interpretation: Performing Lab:[facility], [address] [place] [phone] Notes/Report: Transglutaminase Ab IgG <1.0 Value Interpretation ----- <15.0 Antibody not detected > or = 15.0 Antibody detected THIS TEST WAS PERFORMED AT: [facility] [address] [place] [phone] ELENA SOUZA MD Transglutaminase IgA Reviewed date:08/10/2024 07:53:25 PM Interpretation: Performing Lab:[facility], [address] [place] [phone] Notes/Report: Transglutaminase IgA <1.0 Value Interpretation ----- <15.0 Antibody not detected > or = 15.0 Antibody detected THIS TEST WAS PERFORMED AT: [facility] [address] [place] [phone] ELENA SOUZA MD Gliadin Ab Panel Reviewed date:08/10/2024 07:53:16 PM Interpretation: Performing Lab:[facility], [address] [place] [phone] Notes/Report: Gliadin Deamidated IgA Ab 1.7 Value Interpretation ----- <15.0 Antibody not detected > or = 15.0 Antibody detected Gliadin Deamidated IgG Ab <1.0 Value Interpretation ----- <15.0 Antibody not detected > or = 15.0 Antibody detected THIS TEST WAS PERFORMED AT: [facility] [address] [place] [phone] ELENA SOUZA MD Endomysial IgA rflx Titer Reviewed date:08/10/2024 07:53:06 PM Interpretation: Performing Lab:[facility], [address] [place] [phone] Notes/Report: Endomysial IgA Antibody Negative Negative THIS TEST WAS PERFORMED AT: [facility] [id number] [place] [phone] ALANIS CLAUDIO MD,PHD Endomysial Titer TNP Reason For Referral No Information Medications Medication SIG (Take, Route, Fr equency, Duration) Notes Start Date End Date Status Dicyclomine HCl 10 MG Take 1 or 2 Orally Take 1 or 2 capsules 30 to 60 minutes before each meal to try to prevent the post-meal diarrhea and abdominal pain for 30 days 07/31/2024 A ctive Social History Tobacco Use: Social History Observation [...] Status Risk Notes Problem Colon cancer screening (491545644) Colon cancer screening (Z12.11) Active confirmed Problem History of polyp of colon (situation) (032031534) Personal history of colonic polyps (Z86.010) Active confirmed Problem Irritable bowel syndrome with diarrhea (970419577) Irritable bowel syndrome with diarrhea (K58.0) Active confirmed Problem Left upper quadrant pain (144406958) LUQ abdominal pain (R10.12) Active confirmed Vital Signs Blood pressure diastolic 77 mm Hg 07/31/2024 Height 66 in 07/31/2024 Blood pressure systolic 111 mm Hg 07/31/2024 Weight 293 lbs 07/31/2024 BMI 47.29 kg/m2 07/31/2024 Procedures Procedure Date Ordered Date Performed Result Body Sit e UPPER GI ENDOSCOPY 07/31/2024 N/A COLONOSCOPY 07/31/2024 N/A Encounters Encounter Location Date Provider Diagnosis [facility] [address] [place] [address] 07/31/2024 Shahram Stuart Irritable bowel syndrome with [...] recent imaging studies that she had at [facility] Cynthia was comfortable with this plan. [...] recent imaging studies that she had at [facility] Cynthia was comfortable with this plan. [...] recent imaging studies that she had at [facility] Cynthia was comfortable with this plan. [...] recent imaging studies that she had at [facility] Cynthia was comfortable with this plan. Thank you again for allowing me to participate in Cynthia's care. I shall continue to keep you advised of her progress. 07/31/2024 Other Need 03/2014 GI procedures and path reports [facility] Need 02/2024 U/S and CT reports from [facility] Overall, Cynthia appears well and I [...] recent imaging studies that she had at [facility] Cynthia was comfortable with this plan. [...] PANEL 07/31/2024 Next Appt Details Provider Name:Shahram Stuart , 10/27/2024 09:30:00 AM, [address] [place] [address] , [place], [place], [phone], Insurance Providers Payer Name Payer Address Payer Phone Subscriber Number Group Number Insured Name Patient Relationship to Insured Coverage Start Date Coverage End Date [facility] [address] [place] [address] [phone] [id number] CYNTHIA TRAN Self - patient is the insured Medical (General) History Medical History History ICD Code Denies [place],DM,CVA,Lung disease,renal dise ase In March 2014 she had a GI workup at [facility] for the abdominal pain with a colonoscopy and upper endoscopy. The upper endoscopy was reportedly negative and the colonoscopy revealed several polyps which were removed. She was told to have a repeat colonoscopy in 5 years but did not do that. Surgical History Surgery Date(Month/Year) [place] teeth extraction 2010 section 2023
--- NOTE | 2024-10-24 08:24 | P.CONAN_ITS ---
Documented by User: Ernestina Tee NP 10/24/24 08:35 HPI - Anesthesia Eval Consult details Narrative: 34yo F for Upper Endoscopy and Colonoscopy 07/2024 [facility] ER visit with ? stroke - w/u negative, neuro eval suggests migraine, good effect with migraine cocktail Per neuro consult, previously on meds for IIH - none since without recurring headache PMFSH Active Problems Active Problems: All Active Problems Colon polyps (Acute) Intracranial hypertension (Acute) Sinusitis, acute frontal (Acute) Peritonsillar abscess determined by examination (Acute) Otitis media (Acute) Exposure to COVID-19 virus (Acute) Otitis externa (Acute) Past Medical History Medical History (Updated 10/27/24 @ 08:42 by Jessica Campbell RN) Pseudotumor cerebri Intracranial hypertension Surgical History Surgical History (Updated 10/27/24 @ 08:41 by Jessica Campbell RN) H/O wisdom tooth extraction History of delivery Social History Social History Housing: House Alcohol intake: never Patient Tobacco Use Status: Never used Tobacco e-Cigarette/Vaping Use: Never Used Second Hand Smoke Exposure: No Use of substances other than those prescribed or required for medical reasons: No Are you DNR?: No Advance Directives: No Advance Directives Information Provided: Yes : No Poor oral hygiene: No service: No Current occupational status: employed 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 Cognitive needs: No Hearing needs: No Vision needs: Yes (glasses) Meds Allergies Allergy/AdvReac Type Severity Reaction Status Date / Time amoxicillin Allergy Intermediate rash Verified 03/27/24 11:18 Exam Narrative Narrative: EKG 07/2024 Ventricular Rate: 91 BPM Atrial Rate: 91 BPM P-R Interval: 124 ms QRS Duration: 90 ms Q-T Interval: 364 ms QTC Calculation(Bazett): 447 ms P Linkwood: 41 degrees R Linkwood: 11 degrees T Linkwood: 22 degrees Normal sinus rhythm Normal ECG When compared with ECG of 12-Mar-2024 22:34, No significant change was found Confirmed by GAVIN PRATER MD (Naikta) on 08/11/2024 2:07:09 PM Assessment and Plan Assessment Anesthesia Assessment: Chart Reviewed Documented by User: Sekou Walker MD 10/27/24 09:48 [facility] Past Medical History Medical History (Updated 10/27/24 @ 08:42 by Jessica Campbell, RN) Pseudotumor cerebri Intracranial hypertension Functional capacity: independent ambulation Family History Family history of problems with anesthesia: No Surgical History Surgical History (Updated 10/27/24 @ 08:41 by Jessica Campbell RN) H/O wisdom tooth extraction History of delivery History of Problems with Anesthesia: No Social History Social History Housing: House Alcohol intake: never Patient Tobacco Use Status: Never used Tobacco e-Cigarette/Vaping Use: Never Used Second Hand Smoke Exposure: No Use of substances other than those prescribed or required for medical reasons: No Are you DNR?: No Advance Directives: No Advance Directives Information Provided: Yes : No Poor oral hygiene: No service: No Current occupational status: employed 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 Cognitive needs: No Hearing needs: No Vision needs: Yes (glasses) Meds Allergies Allergy/AdvReac Type Severity Reaction Status Date / Time amoxicillin Allergy Intermediate rash Verified 03/27/24 11:18 Exam Exam Date and Time: 10/27/2024 Airway Mallampati Class: II TM Dist: >3cm Neck ROM: Full Loose/Missing/Broken Teeth: No Heart: rrr Lungs: cta Other: normal Assessment and Plan Final Anesthetic Review Family History of Problems with Anesthesia: No History of Problems with Anesthesia: No NPO: Yes ASA Class: II Final Preanesthetic Review: No Changes in Pt Med Stat, Meds/Allgs Chart Reviewed, Consent Obtained/Reviewed and Anes Risks/Benef Reviewed Patient Risk: Low Procedure Risk: Low Anesthetic Plan Anesthetic Plan: MAC: Disposition: Standard PACU
[2024-10-27 08:45] VITALS: BMI 46.3
[2024-10-27 08:51] LABS: UPreg QC Valid YES
[2024-10-27 08:55] VITALS: BP 139/85; PULSE 68; RESP 16; TEMP 36.3; O2SAT 97
[2024-10-27] MEDS: Lactated Ringers 1,000 ML 100 ML IVCONT (09:09)
[2024-10-27 10:46] VITALS: BP 133/65; PULSE 72; RESP 17; TEMP 36.1; O2SAT 97
--- NOTE | 2024-10-27 10:53 | PM.OP ---
Brief Operative Note Date of Service: 10/27/24 Pre-op diagnosis: Abdominal pain, diarrhea Post-op diagnosis: other (Gastritis, Colon polyp) Procedure: EGD with biopsies, Colonoscopy to the cecum and TI with cold snare polypectomy and biopsies Surgeon: Shahram Stuart MD Anesthesia: MAC Was an Air Turning Machine Feeder used for this Procedure?: No Estimated blood loss (mL): 2.0 Pathology: other (A. 2nd and 3rd portions of duodenum B. Gastric antrum C. EG Junction at 37cm D. Terminal ileum E. Ascending colon F. Polyp at 50cm G. Descending colon) Condition: stable Disposition: PACU
[2024-10-27 11:00] VITALS: BP 136/80; PULSE 61; RESP 16; TEMP 36.3; O2SAT 99
--- NOTE | 2024-10-27 12:17 | OP_ITS ---
DATE OF SERVICE: 10/27/2024 SURGEON: Shahram Stuart MD INDICATIONS: The patient presented for followup of chronic abdominal discomfort, diarrhea, and reported history of colon polyps. Full consent was obtained from her for this, including risks of bleeding and perforation. PREOPERATIVE DIAGNOSIS: POSTOPERATIVE DIAGNOSIS: PROCEDURE PERFORMED: ESTIMATED BLOOD LOSS: COMPLICATIONS: ANESTHESIA: ASSISTANTS: SPECIMENS: PROCEDURE: Esophagogastroduodenoscopy with biopsies, and colonoscopy to the cecum and terminal ileum with biopsies and cold snare polypectomy. PREOPERATIVE DIAGNOSES: Diarrhea and reported history of colon polyps. DESCRIPTION OF PROCEDURE: The patient was placed in the left lateral decubitus position. The Olympus video gastroscope was passed in the posterior oropharynx and upper esophagus under direct vision. The scope was passed slowly to the distal esophagus. The gastroesophageal junction appeared at 37 cm. There was some slight edema and minimal irregularity, but no evidence of any esophagitis nor Morrison's esophagus. There was a minimal hiatal hernia. The scope was advanced to the pylorus and the duodenum was cannulated to the descending portion. The duodenum including the bulb appeared normal without mass or ulceration. Biopsies were obtained from the 2nd and 3rd portions of duodenum. The scope was withdrawn back to the stomach. The gastric antrum had some mild areas of erythema and edema, but no erosions or ulcerations. There was good peristalsis. Biopsies were obtained from the pre-pyloric antrum. The scope was retroflexed visualizing the proximal stomach carefully, which appeared normal, without any sign of mass or ulceration. The scope was straightened and withdrawn back to the esophagus. Biopsies were obtained at the EG junction at 37 cm. Proximal to this, the esophageal mucosa appeared normal. The scope was withdrawn from the patient. She was turned around for the colonoscopy. The digital rectal exam revealed no abnormalities. The Olympus video pediatric colonoscope was entered into the rectum and advanced easily into the cecum. Once in the cecum, I did identify normal-appearing cecal pouch with appendiceal orifice and a normal-appearing ileocecal valve. The terminal ileum was cannulated and appeared normal. Biopsies were obtained. The scope was withdrawn back into the colon. The entire cecum and ileocecal valve appeared normal. The scope was slowly withdrawn assessing all mucosal surfaces carefully. Preparation was excellent. I did not visualize any sign of colitis nor angiodysplasia. Random biopsies were obtained in the ascending and descending colon. At 50 cm, there was an approximately 5 or 6 mm polyp, which was removed by cold snare polypectomy and recovered by suction. The polypectomy site appeared clean, without any sign of residual polyp nor significant bleeding. I did not visualize any other polyps. In the rectum, scope was retroflexed visualizing some internal hemorrhoids, but no other pathology. The rectal mucosa appeared normal. The scope was straightened and withdrawn from the patient. She tolerated the procedures well and was returned to recovery area in stable condition. IMPRESSION: 1. Colon polyp. 2. Rule out microscopic colitis. 3. Internal hemorrhoids. 4. Small hiatal hernia with mild changes of reflux. 5. Rule out Helicobacter pylori. 6. Rule out celiac disease. PLAN: The results of the biopsies will be checked. She was advised not to use any aspirin and NSAIDs for 1 week. If the colon polyp is just hyperplastic, then I would recommend a repeat colonoscopy at age 42 given the family history of colon cancer. If the polyp is something such as an adenoma or serrated polyp, then I would recommend a repeat colonoscopy in 3 years instead. Of note, her colonoscopy done through [facility] about 10 years ago only had a hyperplastic polyp that was removed. She was advised to use her dicyclomine as needed for the abdominal cramps. I will give her a prescription for Famotidine 40mg once or twice a day as needed for upper abdominal discomfort or burning and any associated reflux. I don't think she needs a PPI at this time. Overall, I suspect that most of her symptoms are related to the irritable bowel syndrome. If things are stable she will see me as needed. I did advise her to call me if needed. This has all been discussed with her . MD DYLAN Jorgensen/CHRISTIAN / [id number] JOSELIN
== END 2024-10-27 11:25 | disposition home or self-care (01) ==
PROVIDERS: Nurse Practitioner; Visit Provider Internal Medicine
PROC: (CPT 45385; principal; 2024-10-27 09:30)
DX: Z12.11 Encounter for screening for malignant neoplasm of colon (principal); D12.5 Benign neoplasm of sigmoid colon; K64.8 Other hemorrhoids; Z86.0101 Personal history of adenomatous and serrated colon polyps; R10.12 Left upper quadrant pain; K29.60 Other gastritis without bleeding; K44.9 Diaphragmatic hernia without obstruction or gangrene; K21.9 Gastro-esophageal reflux disease without esophagitis
CPT/HCPCS: 45385; 45380; 43239; 81025; 88305; 88313; 88342; J2704; J3010